=== PATIENT | female | born 1940 | race Caucasian/White ===

== ENCOUNTER 2023-06-07 06:00 | Outpatient (CLI) | payer OTHER | END 2023-06-07 23:59 | disposition critical access hospital (66) | LOC: EMS 06:00 | DX: N20.0 Calculus of kidney (principal) | CPT/HCPCS: A0425; A0429 ==

== ENCOUNTER 2023-06-07 06:13 | Observation (INO) | payer MEDICARE, OTHER ==
--- NOTE | 2023-06-07 06:59 | ED Physician Documentation ---
PD HPI ABD PAIN - Stated complaint Stated Complaint: KIDNEY STONES - Chief complaint Chief Complaint: General - History obtained from History obtained from: Patient, Family - History of Present Illness Timing - onset: How many days ago (3-4) Timing - duration: Days (3-4) Timing - details: Gradual onset, Still present Quality: Cramping, Aching, Pain Location: LLQ Radiation: Left flank Associated symptoms: Nausea. No: Fever, Diarrhea, Constipation, Dysuria (but some frequency), Chest pain Recently seen: Emergency Dept (Seen 3 days ago for same symptoms and diagnosed with a 5 mm stone at the distal ureter with significant hydro ureter and hydronephrosis. Incidental note of renal cyst. The patient has had persistent pain despite oral medication. Pain is worse with movement and walking. Slumped to the floor AM.). No: Clinic (When the patient was here 3 days ago I did talk with the [facility] coordinating physician who is placing a urology consult. The states the consult is still in progress and may go through tomorrow and then the office estimates another week for an appointment.) Review of Systems Constitutional: reports: Chills. 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 denies: Cough, Wheezing GI: reports: Abdominal Pain (left abdomen and flank persisting despite oral pain meds at home.), Nausea. denies: Vomiting, Diarrhea : reports: Frequency Skin: denies: Rash PD PAST MEDICAL HISTORY - Past Medical History Cardiovascular: None, Murmur Respiratory: None Neuro: None Endocrine/Autoimmune: None : Other - Past Surgical History Past Surgical History: Yes - Present Medications Home Medications: Ambulatory Orders Medication Instructions Recorded Confirmed Atorvastatin Calcium 40 mg PO DAILY 06/04/23 06/07/23 Lisinopril [Zestril] 20 mg PO DAILY 06/04/23 06/07/23 Meloxicam [Mobic] 7.5 mg PO BID 10 Days #15 tablet 06/04/23 06/07/23 Ondansetron Odt [Zofran] 4 mg TL Q6H PRN #15 tablet 06/04/23 06/07/23 Oxycodone HCl/Acetaminophen 1 each PO Q4H PRN #20 tablet 06/04/23 06/07/23 [Percocet 5-325 mg Tablet] Tamsulosin [Flomax] 0.4 mg PO DAILY #5 cap 06/04/23 06/07/23 - Allergies Allergies/Adverse Reactions: Allergies Allergy/AdvReac Type Severity Reaction Status Date / Time Penicillins Allergy Unknown Verified 06/07/23 12:13 - Social History Does the pt smoke?: No Smoking Status: Never smoker PD ED PE NORMAL - Vitals Vital signs reviewed: Yes - General General: Alert and oriented X 3, Well developed/nourished - HEENT HEENT: Atraumatic - Neck Neck: Supple, no meningeal sign, No adenopathy, No JVD - Cardiac Cardiac: RRR, Other (2/6 murmur left chest) - Respiratory Respiratory: Clear bilaterally (no crackles nor wheezes. ) - Abdomen Abdomen: Normal bowel sounds, Non distended, Other (tender left abd ith some guarding but no percussion tender. ) - Derm Derm: Normal color, Warm and dry - Extremities Extremities: No edema, No calf tenderness / cord - Neuro Neuro: Alert and oriented X 3, No motor deficit, No sensory deficit, Normal speech Results - Vitals Vitals: Vital Signs - 24 hr 06/07/23 06/07/23 06/07/23 06:22 06:30 08:30 Temperature 36.2 C L Heart Rate 94 81 Respiratory 22 22 18 Rate Blood Pressure 146/71 H 115/52 L O2 Saturation 98 96 93 06/07/23 06/07/23 06/07/23 10:34 11:02 11:53 Temperature 36.2 C L 36.0 C L Heart Rate 81 75 71 Respiratory 18 18 15 Rate Blood Pressure 115/52 L 102/59 L 113/60 O2 Saturation 93 94 100 06/07/23 06/07/23 06/07/23 12:00 12:05 12:10 Temperature 36.0 C L 36.1 C L 36.1 C L Heart Rate 70 70 76 Respiratory 15 15 17 Rate Blood Pressure 109/62 107/63 117/63 O2 Saturation 100 100 100 06/07/23 06/07/23 06/07/23 12:16 12:20 12:25 Temperature 36.3 C L 36.3 C L 36.3 C L Heart Rate 80 77 74 Respiratory 18 17 18 Rate Blood Pressure 119/72 123/69 120/68 O2 Saturation 95 95 94 06/07/23 06/07/23 06/07/23 12:30 12:35 12:40 Temperature 36.3 C L 36.3 C L 36.3 C L Heart Rate 76 77 77 Respiratory 17 23 23 Rate Blood Pressure 127/68 101/84 H 101/84 H O2 Saturation 94 95 95 06/07/23 06/07/23 06/07/23 12:57 13:35 14:31 Temperature 36.3 C L 36.5 C 36.3 C L Heart Rate 77 70 62 Respiratory 20 14 14 Rate Blood Pressure 124/70 122/65 117/53 L O2 Saturation 95 94 95 Oxygen O2 Source Room air - Labs Labs: Laboratory Tests 06/07/23 06/07/23 06/07/23 06:52 06:52 07:03 WBC 17.6 H RBC 4.50 Hgb 13.3 Hct 41.5 MCV 92.2 MCH 29.6 MCHC 32.0 RDW 13.7 Plt Count 224 MPV 9.8 Neut # (Auto) 15.4 H Lymph # (Auto) 0.6 L [place] # (Auto) 1.0 Eos # (Auto) 0.1 Baso # (Auto) 0.1 Absolute Nucleated RBC 0.00 Nucleated RBC % 0.0 Manual Slide Review Indicated RBC Morph Micro Appear 2+ ANISOCYTOSIS Sodium 135 Potassium 4.0 Chloride 102 Carbon Dioxide 23 Anion Gap 10.0 BUN 29 H Creatinine 1.1 Estimated GFR (MDRD) 48 L Glucose 143 H Calcium 8.9 Urine Color YELLOW Urine Clarity HAZY Urine pH 7.0 Ur Specific [place] 1.015 Urine Protein 30 H Urine Glucose (UA) NEGATIVE Urine Ketones 15 H Urine Occult Blood TRACE-INTA Urine Nitrite NEGATIVE Urine Bilirubin NEGATIVE Urine Urobilinogen 1 (NORMAL) Ur Leukocyte Esterase SMALL H Urine RBC 0-5 Urine WBC >25 H Ur Squamous Epith Cells NONE SEEN Urine Bacteria Moderate H Ur Microscopic Review INDICATED Urine Culture Comments INDICATED PD Medical Decision Making - ED course Complexity details: reviewed results (The white count this morning is elevated compared to 3 days ago. It is now 17,000. The urinalysis shows small amount of leukocytes and the presence of white cells on microscopy as well as some bacteria. Consideration for developing UTI.), considered differential (The patient has persisting pain from kidney stone and hydronephrosis. Interestingly is more symptomatic with walking and movement as well. She had oral pain medicine at home with only mild improvement. Concern may be a possible developing UTI, as well as intractable pain.), d/w patient, d/w family (spouse), d/w professional employer consultant (I talked with Dr. Wu on-call for urology who states he would be able to place a stent for the patient today. Refers to medical service. Would suggest ceftriaxone for possible developing UTI. The patient last ate at 9 PM last evening.) ED course: The patient is going to go to the OR for stent placement by the urology. Intention from there will be to see how her pain is doing and pain control/mobility and also evaluating possible developing UTI. Observation may be most appropriate. I did talk with the hospitalist on morning rounds and felt that that was likely appropriate. We do not have any beds available initially but discharges are expected. The patient did go to the OR and had the stent placed. She is in the recovery at this point. There is reportedly some discharges occurring from the floor so the patient is being held a little bit longer in the recovery unit to see if she can go directly there. I have not directly talked with the hospitalist again there is not he had a bed available but a will place a call and. Otherwise the patient may end up needing to come back to the ER until beds are available if the PACU cannot hold on longer. At this point they are still there normally through couple more hours. I did place a call to the hospitalist who is with other patients at this time and I will expect call back here shortly. Departure - Departure Disposition: ED Place in Observation Clinical Impression: Ureterolithiasis, Intractable pain, UTI (urinary tract infection), Left sided abdominal pain, Renal cyst, Heart murmur on physical examination Condition: Stable Record reviewed to determine appropriate education?: Yes Discharge Date/Time: 06/07/23 11:07
[2023-06-07 07:05] LABS: BASOPHILS # (AUTO) 0.1 10^3/uL (0.0-0.1); BASOPHILS % (AUTO) 0.4 %; EOSINOPHILS # (AUTO) 0.1 10^3/uL (0.0-0.7); EOSINOPHILS % (AUTO) 0.5 %; HCT - HEMATOCRIT 41.5 % (37.0-47.0); HGB - HEMOGLOBIN 13.3 g/dL (12.0-16.0); LYMPHOCYTES # (AUTO) 0.6 10^3/uL (1.5-3.5); LYMPHOCYTES % (AUTO) 3.4 %; MEAN CORPUSCULAR HEMOGLOBIN 29.6 pg (27.0-31.0); MEAN CORPUSCULAR VOLUME 92.2 fL (81.0-99.0); MEAN PLATELET VOLUME 9.8 fL (7.9-10.8); MONOCYTES % (AUTO) 5.4 %; NEUTROPHILS # (AUTO) 15.4 10^3/uL (1.5-6.6); NEUTROPHILS % (AUTO) 87.3 %; PLT - PLATELET COUNT 224 10^3/uL (130-450); RED CELL DISTRIBUTION WIDTH 13.7 % (12.0-15.0); WHITE BLOOD COUNT 17.6 x10^3/uL (4.8-10.8)
[2023-06-07 07:10] LABS: SLIDE REVIEW? Indicated
[2023-06-07 07:14] LABS: CALCIUM 8.9 mg/dL (8.5-10.3); CREATININE 1.1 mg/dL (0.6-1.3)
[2023-06-07 07:27] LABS: BILIRUBIN,URINE NEGATIVE (NEGATIVE); GLUCOSE, URINE (UA) NEGATIVE (NEGATIVE); KETONES,URINE (UA) 15 mg/dL (NEGATIVE); LEUKOCYTE ESTERASE, URINE SMALL (NEGATIVE); NITRITE,URINE NEGATIVE (NEGATIVE); OCCULT BLOOD,URINE TRACE-INTA (NEGATIVE); PROTEIN,URINE 30 mg/dL (NEGATIVE); UROBILINOGEN,URINE 1 (NORMAL) E.U./dL (NORMAL)
[2023-06-07 07:31] LABS: CLARITY,URINE HAZY (CLEAR)
[2023-06-07 07:39] LABS: RBC MORPHOLOGY (MULTIPLE) 2+ ANISOCYTOSIS (NORMAL)
[2023-06-07 07:49] LABS: RBC,URINE 0-5 /HPF (0-5); SQUAMOUS EPITHELIAL CELL,UR NONE SEEN (<= Few); WBC,URINE >25 /HPF (0-5)
[2023-06-07 07:50] LABS: BACTERIA,URINE Moderate /HPF (None Seen)
[2023-06-07] MEDS ORDERED: HYDROmorphone 0.5 MG/0.5 ML SYRINGE IVP STA (08:31)
[2023-06-07] MEDS ORDERED: KETOROLAC 15 MG/ML VIAL IVP STA (08:31)
[2023-06-07] MEDS ORDERED: cefTRIAXone 1 GM VIAL IVP STA (08:42)
--- NOTE | 2023-06-07 09:35 | SURGERY HX AND PHYSICAL(T) ---
Surgical History & Physical - Chief Complaint/HPI Chief Complaint: Left flank pain History of Present Illness: 82-year-old woman with no significant urological history who presented to the ER 3 days ago with left flank pain, was found to have a 5 mm distal left ureteral stone. She was sent home with conservative management. She returns today with worsening pain, leukocytosis, urinalysis concerning for infection. She is hemodynamically stable she is afebrile. Her last meal was last night - PMH/PSH/Social Hx Does the pt have a hx of MRSA?: No Neurological History: None Cardiovascular: None, Murmur Respiratory: None Endocrine/Autoimmune: None Urinary: Other Smoking Status: Never smoker - Home Meds and Allergies Home Medications: Atorvastatin Calcium 40 mg PO DAILY 06/04/23 Lisinopril [Zestril] 20 mg PO DAILY 06/04/23 Allergies/Adverse Reactions: Allergies Allergy/AdvReac Type Severity Reaction Status Date / Time No Known Drug Allergies Allergy Verified 06/07/23 06:33 - Vital Signs Heart Rate: 81 Blood Pressure: 115/52 Temperature: 36.2 C Respiratory Rate: 18 O2 Saturation: 93 Weight (kg): 86 kg Height: 1.6 m - Physical Exam General Appearance: positive: Other (flushed) Respiratory: positive: Breath sounds nml Cardiovascular: positive: Regular rate & rhythm - Patient Review Patient Review: Problems were reviewed with the patient during this visit. Medications were reviewed with the patient during this visit. Allergies were reviewed this patient during this visit. Pertinent Tests Reviewed: All pertitent test for this patient were reviewed. - Assessment & Plan Assessment and Plan: 82yo F with left distal 5mm ureteral stone, 1.6cm left non obstructing stone, possible UTI and failed outpatient management -add on for cystoscopy, left ureteral stent placement -risks benefits and alternatives discussed with patient -will need definitive stone management as an outpatient -likely stay overnight -empiric antibiotics given, will go home with 7 days of antibiotics
[2023-06-07] MEDS ORDERED: LIDOCAINE 2% URO-JET 5 ML SYRINGE UR ONE ×2 (10:48→12:17)
[2023-06-07] MEDS ORDERED: PROPOFOL 200 MG/20 ML VIAL IVP ONE (11:06)
[2023-06-07] MEDS ORDERED: LIDOCAINE-PF 2% 10 ML AMP SUBQ ONE (11:07)
[2023-06-07] MEDS ORDERED: fentaNYL 100 MCG/2 ML VIAL ONE (11:18)
[2023-06-07] MEDS ORDERED: ePHEDrine 50 MG/ML VIAL IVP ONE (11:38)
[2023-06-07] MEDS ORDERED: LACTATED RINGERS 400 ML IV ONE ×2 (11:53)
[2023-06-07] MEDS ORDERED: ATROPINE ABBOJECT 1 MG/10 ML SYRINGE IVP PRN (12:02)
[2023-06-07] MEDS ORDERED: MORPHINE 2 MG/ML CARPUJECT IVP PRN (12:02)
[2023-06-07] MEDS ORDERED: fentaNYL 100 MCG/2 ML VIAL IVP PRN (12:02)
[2023-06-07] MEDS ORDERED: ONDANSETRON 4 MG/2 ML VIAL IVP PRN ×2 (12:02→12:21)
[2023-06-07] MEDS ORDERED: NALOXONE 0.4 MG/ML VIAL IVP PRN (12:02)
[2023-06-07] MEDS ORDERED: METOCLOPRAMIDE 10 MG/2 ML VIAL IVP PRN (12:02)
[2023-06-07] MEDS ORDERED: HYDROmorphone 0.5 MG/0.5 ML SYRINGE IVP PRN ×2 (12:02→16:35)
[2023-06-07] MEDS ORDERED: ePHEDrine 50 MG/ML VIAL IVP PRN (12:02)
--- NOTE | 2023-06-07 12:04 | ANESTHESIA ---
Pre-Anesthesia VS, & Labs - Diagnosis L kidney stone - Procedure cysto with L urethral stent Vital Signs: Temp Pulse Resp BP Pulse Ox O2 Flow Rate 36.0 C L 70 15 109/62 100 06/07/23 12:00 06/07/23 12:00 06/07/23 12:00 06/07/23 12:00 06/07/23 12:00 Height: 5 ft 3 in Weight (kg): 86 kg Body Mass Index: 33.5 BMI Classification: Obese - NPO >8 hours - Is Patient ?: No - Lab Results Current Lab Results: Laboratory Tests 06/07/23 06:52: Sodium 135, Potassium 4.0, Chloride 102, Carbon Dioxide 23, Anion Gap 10.0, BUN 29 H, Creatinine 1.1, Estimated GFR (MDRD) 48 L, Glucose 143 H, Calcium 8.9 06/07/23 06:52: WBC 17.6 H, RBC 4.50, Hgb 13.3, Hct 41.5, MCV 92.2, MCH 29.6, MC HC 32.0, RDW 13.7, Plt Count 224, MPV 9.8, Neut # (Auto) 15.4 H, Lymph # (Auto) 0.6 L, [place] # (Auto) 1.0, Eos # (Auto) 0.1, Baso # (Auto) 0.1, Absolute Nucleated RBC 0.00, Nucleated RBC % 0.0, Manual Slide Review Indicated, RBC Morph Micro Appear 2+ ANISOCYTOSIS Fish Bones: 06/07/23 06:52 06/07/23 06:52 Home Medications and Allergies Atorvastatin Calcium 40 mg PO DAILY 06/04/23 Lisinopril [Zestril] 20 mg PO DAILY 06/04/23 Allergies/Adverse Reactions: Allergies Allergy/AdvReac Type Severity Reaction Status Date / Time No Known Drug Allergies Allergy Verified 06/07/23 06:33 Anes History & Medical History - Anesthetic History Anesthesia Complications: reports: No previous complications Family history of Anesthesia Complications: Denies Family history of Malignant Hyperthermia: Denies - Medical History Cardiovascular: reports: AK, Murmur Pulmonary: reports: None Urinary: reports: Other Neuro: reports: None Endocrine/Autoimmune: reports: None Smoking Status: Never smoker Psychosocial: reports: Alcohol (hx of heavy ETOH, recently quit) Exam General: Oriented x3, Cooperative, Other (pt lethargic; recently medicated with dilaudid in ED) Dental: WNL Mouth Openin Fingerbreadth Neck Mobility: Normal Mallampati classification: III Thyromental Distance: 4-6 cm Respiratory: Lungs clear Cardiovascular: Regular rate Plan Anesthesia Type: General Consent for Procedure(s) Verified and Reviewed: Yes Code Status: Attempt Resuscitation ASA classification: 2-Mild systemic disease Is this case an emergency?: No
--- NOTE | 2023-06-07 12:16 | OPERATIVE REPORT ---
Operative Report - General Procedure Date: 06/07/23 Planned Procedure: Cystoscopy left ureteral stent Pre-Op Diagnosis: Left ureteral stone Procedure Performed: Cystoscopy, left ureteral stent Post Op Diagnosis: left ureteral stone - Procedure Note Primary Surgeon: Bryce Anesthesia Provider: KATTY Anesthesia Technique: General LMA Indications: left ureteral stone, pain, UTI Findings: Erythematous bladder mucosa left stent placed Complications: none - Other Other Information/Narrative: After informed consent was obtained the patient was brought to the OR and laid in the supine position. She was anesthetized per anesthesia protocols. She was placed in dorsal lithotomy position. She was then prepped and draped in usual sterile fashion. A formal timeout was performed reconfirming the patient, procedure and laterality. A 22 Albanian cystoscope was advanced easily into the urinary bladder. She was noted to have a grade 2 rectocele. Her bladder mucosa was erythematous diffusely consistent with cystitis. A sensor wire was placed up her left ureteral orifice up into the kidney and then a 6 Albanian 24cm stent was placed with good curling noted in the kidney and good curling noted in the blad ike. Her stones did not appear to be radiopaque. Her bladder was emptied and a Uro-Jet was placed. The patient was reversed anesthesia and brought to the PACU without further incident. All counts were correct. She will be kept overnight to monitor improvement in her leukocytosis. She should go home with 7 days of empiric antibiotics such as Keflex. She will need outpatient management of her stone
[2023-06-07] MEDS ORDERED: LACTATED RINGERS 1,000 ML IV SCH (13:00)
--- NOTE | 2023-06-07 16:18 | ANESTHESIA POST OP EVALUATION ---
Anesthesia Post Eval - Post Anesthesia Eval Vitals: Last Vital Signs Temp 36.3 C L 06/07/23 14:31 Pulse 62 06/07/23 14:31 Resp 14 06/07/23 14:31 BP 117/53 L 06/07/23 14:31 Pulse Ox 95 06/07/23 14:31 O2 Flow Rate CV Function Including HR & BP: Stable Pain Control: Satisfactory Nausea & Vomiting: Negative Mental Status: Baseline Respiratory Status: Airway Patent Hydration Status: Satisfactory Anesthesia Complications: None
--- NOTE | 2023-06-07 16:24 | CONSULTATION NOTE ---
Referring Provider Name of Referring Provider:: Dr Lara (ER) Consult Date: 06/07/23 Chief Complaint - Chief Complaint Chief Complaint: Worsening flank pain, getting stent placed by urology for stone, has a UTI History of Present Illness - Admitted From Admitted From:: PACU - History Obtained From History obtained from: ED provider - History of Present Illness HPI Comment/Other: This is an 82-year-old female who presented to the ED 3 days ago with complaints of flank pain, had a normal white blood count and no UTI found, but CT imaging showed a stone causing obstruction with hydronephrosis. The daughter also remarked that there was left sided weakness for which she underwent a head CT that was unremarkable. She was sent home with pain meds. The ED provider also spoke with the [facility] physician for a urology consult. The stated the consult is still in progress and estimate given was another week for an appointment. She returned to the ER complaining of worsening flank pain and the work-up now shows that she has an elevated white count of 17.6 and urinalysis with evidence of UTI. No repeat imaging of the abd/pelvis was done today. The ED provider spoke to the Urologist, who has just completed putting in a stent. The Urologist then spoke to me indicating that the patient had a "soft" BP at presentation and because of the elevated WBC, he wants her monitored for having spesis and wants her to receive a 7-day course of antibiotics. 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 Social History Notes: Quit smoking cigarettes many years ago. Drinks no alcohol. She says she drives a car. 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 - Substance History Use: Uses substance without health or social issues: NONE - POLST Patient has POLST: No Meds/Allgy - Home Medications Home Medications: Ambulatory Orders Medication Instructions Recorded Confirmed Atorvastatin Calcium 40 mg PO DAILY 06/04/23 06/07/23 Lisinopril [Zestril] 20 mg PO DAILY 06/04/23 06/07/23 Meloxicam [Mobic] 7.5 mg PO BID 10 Days #15 tablet 06/04/23 06/07/23 Ondansetron Odt [Zofran] 4 mg TL Q6H PRN #15 tablet 06/04/23 06/07/23 Oxycodone HCl/Acetaminophen 1 each PO Q4H PRN #20 tablet 06/04/23 06/07/23 [Percocet 5-325 mg Tablet] Tamsulosin [Flomax] 0.4 mg PO DAILY #5 cap 06/04/23 06/07/23 - Allergies Allergies/Adverse Reactions: Allergies Allergy/AdvReac Type Severity Reaction Status Date / Time Penicillins Allergy Unknown Verified 06/07/23 12:13 Review of Systems - Constitutional Constitutional: reports: Fatigue, Weakness - Genitourinary Genitourinary: reports: Frequency, Flank pain - Musculoskeletal Musculoskeletal: reports: Other (Reports to me (but did not tell ER today) that she fell out of bed this morning and has pain in the left buttock, worse and very painful when bearing weight) - Neurological Neurological: reports: Other (She remembers vaguely there was left arm weakness about a month ago, denies it currently) - All Other Systems All Other Systems: reports: Reviewed and negative Exam - Vital Signs Vital Signs: Vital Signs x48h Temp Pulse Resp BP Pulse Ox 06/07/23 14:31 36.3 C L 62 14 117/53 L 95 06/07/23 13:35 36.5 C 70 14 122/65 94 06/07/23 12:57 36.3 C L 77 20 124/70 95 06/07/23 12:40 36.3 C L 77 23 101/84 H 95 06/07/23 12:35 36.3 C L 77 23 101/84 H 95 06/07/23 12:30 36.3 C L 76 17 127/68 94 06/07/23 12:25 36.3 C L 74 18 120/68 94 06/07/23 12:20 36.3 C L 77 17 123/69 95 06/07/23 12:16 36.3 C L 80 18 119/72 95 06/07/23 12:10 36.1 C L 76 17 117/63 100 06/07/23 12:05 36.1 C L 70 15 107/63 100 06/07/23 12:00 36.0 C L 70 15 109/62 100 06/07/23 11:53 36.0 C L 71 15 113/60 100 06/07/23 11:02 75 18 102/59 L 94 06/07/23 10:34 36.2 C L 81 18 115/52 L 93 06/07/23 08:30 81 18 115/52 L 93 - Physical Exam General Appearance: positive: No acute distress, Lethargic (After pain meds) Eyes Bilateral: positive: Normal inspection, EOMI ENT: positive: ENT inspection nml, No signs of dehydration Neck: positive: Nml inspection, No JVD Respiratory: positive: No respiratory distress, Breath sounds nml Cardiovascular: positive: Regular rate & rhythm, No murmur Abdomen: positive: Non-tender, Nml bowel sounds, No distention Skin: positive: Warm, Dry Extremities: positive: Non-tender, No pedal edema Neurologic/Psychiatric: positive: Oriented x3, Motor nml Conclusion/Plan - Problem List (1) UTI (urinary tract infection) Conclusion/Plan: Patient presented with flank pain 3 days ago but did not have an elevated white count or abnormal UTI then, despite imaging showing urinary tract obstruction with hydronephrosis Now she has an elevated WBC and abnormal UA consistent with UTI Plan: Obtain Lactic Acid level to assure there is no sepsis Follow CBC with differential daily Begin empiric IV ceftriaxone daily Await urine culture results to tailor antibiotics. Dr. Wu of Urology has told me he wants her to get 7 days of an antibiotic like Keflex upon discharge (2) Ureterolithiasis Conclusion/Plan: Patient was taken to the OR for stent done by urology Plan: Management as per Urol Pain meds prn (3) Prerenal azotemia Conclusion/Plan: BUN 29, creatinine 1.1 consistent with prerenal azotemia Plan: I will order maintenance IV fluids Avoid nephrotoxins Follow BMP daily (4) Hx of essential hypertension Conclusion/Plan: The patient is on lisinopril at home. She also is on tamsulosin which can drop her blood pressure somewhat. She presents now with a "soft" BP. Plan: Hold her Lisinopril, given the "soft" BP (5) Fall at home Conclusion/Plan: Describes pain in left buttock with weightbearing Plan: We will obtain hip and pelvic x-rays 2-3 views left side - Lab Results Fish Bones: 06/07/23 06:52 06/07/23 06:52 - Diagnostic Imaging Results Diagnostic Imaging Results: positive: Final report reviewed
[2023-06-07] MEDS ORDERED: ONDANSETRON ODT 4 MG TABLET TL PRN ×2 (16:31→16:35)
[2023-06-07] MEDS ORDERED: oxyCODONE/ACET 5/325 Prepack 4 PO PRN (16:31)
[2023-06-07] MEDS ORDERED: SODIUM CHLORIDE FLUSH 0.9% 10 ML SYRINGE IVP PRN (16:35)
[2023-06-07] MEDS ORDERED: oxyCODONE 5 MG TABLET PO PRN (16:35)
--- NOTE | 2023-06-07 19:20 | XRAY Report ---
PROCEDURE: Hip w/Pelvis 2-3V LT INDICATIONS: Fell OOB at home today, painful w/ standing TECHNIQUE: AP pelvis with lateral view(s) of the left hip(s). COMPARISON: None. FINDINGS: Bones: No fractures or dislocations. No suspicious bony lesions. Soft tissues: No suspicious soft tissue calcifications or masses. Nephroureteral stent placement. IMPRESSION: No acute bony abnormality. If there remains a high clinical concern for fracture, including inability to bear weight, consider cross-sectional imaging to exclude an occult fracture. Reviewed by: Zeeshan Hicks on 06/07/2023 7:19 PM PDT Approved by: Zeeshan Hicks on 06/07/2023 7:19 PM PDT Station ID: [id number]
[2023-06-07] MEDS: HYDROcod/ACETAM 5/325 MG TABLET PO PRN (19:55)
[2023-06-07] MEDS: SODIUM CHLORIDE FLUSH 0.9% 10 ML SYRINGE IVP SCH (19:55)
[2023-06-07] MEDS ORDERED: PRAVASTATIN 40 MG TABLET PO SCH (21:00)
[2023-06-08] MEDS: SODIUM CHLORIDE FLUSH 0.9% 10 ML SYRINGE IVP SCH ×3 (00:01→21:49)
[2023-06-08 06:51] LABS: BASOPHILS % (AUTO) 0.1 %; EOSINOPHILS % (AUTO) 0.8 %; HCT - HEMATOCRIT 40.8 % (37.0-47.0); HGB - HEMOGLOBIN 13.2 g/dL (12.0-16.0); LYMPHOCYTES % (AUTO) 6.6 %; MEAN CORPUSCULAR HEMOGLOBIN 29.7 pg (27.0-31.0); MEAN CORPUSCULAR HGB CONC 32.4 g/dL (32.0-36.0); MEAN CORPUSCULAR VOLUME 91.9 fL (81.0-99.0); MONOCYTES % (AUTO) 8.3 %; NEUTROPHILS % (AUTO) 81.9 %; RED BLOOD COUNT 4.44 10^6/uL (4.20-5.40); RED CELL DISTRIBUTION WIDTH 13.5 % (12.0-15.0)
[2023-06-08 07:06] LABS: CALCIUM 8.4 mg/dL (8.5-10.3); CREATININE 0.8 mg/dL (0.6-1.3)
[2023-06-08 07:28] LABS: WHITE BLOOD COUNT 14.6 x10^3/uL (4.8-10.8)
[2023-06-08 07:29] LABS: ABNORMAL LYMPHS % (MANUAL) 0 %
[2023-06-08 07:48] LABS: BAND NEUTROPHILS % (MANUAL) 2 %; EOSINOPHILS # (MANUAL) 0.3 10^3/uL (0-0.7); LYMPHOCYTES # (MANUAL) 1.2 10^3/uL (1.5-3.5); LYMPHOCYTES % (MANUAL) 7 %; MONOCYTES # (MANUAL) 1.3 10^3/uL (0.0-1.0); MYELOCYTES % (MANUAL) 1 %; NEUTROPHILS # (MANUAL) 11.7 10^3/uL (1.5-6.6); REACTIVE LYMPHS % (MANUAL) 1 %
[2023-06-08 07:49] LABS: PLATELET MORPHOLOGY PLATELET CLUMPING (NORMAL); RBC MORPHOLOGY (MULTIPLE) NORMAL APPEARANCE (NORMAL)
[2023-06-08 07:50] LABS: DIFFERENTIAL COMMENT MANUAL DIFFERENTIAL
--- NOTE | 2023-06-08 08:07 | XRAY Report ---
PROCEDURE: OR C-Arm Procedure INDICATIONS: cysto w/stent FLUORO TIME: 0.01 MIN TECHNIQUE: 3 intraoperative fluoroscopic images COMPARISON: None. FINDINGS AND IMPRESSION: 3 intraoperative fluoroscopic images of urologic procedure with a ureteral stent are provided for non diagnostic interpretation. Please see operative report for details. Cumulative dose: 2.9 mGy Reviewed by: Cristofer Rosas MD on 06/08/2023 8:05 AM PDT Approved by: Cristofer Rosas MD on 06/08/2023 8:05 AM PDT Station ID: [id number]
--- NOTE | 2023-06-08 08:17 | PROVIDER PROGRESS NOTE ---
Subjective - General Admit Date: 06/07/23 Procedure Date: 06/07/23 Post Op Days: 1 - Review of Systems General: positive: No symptoms Pulmonary: positive: No symptoms Cardiovascular: positive: No symptoms Gastrointestinal: positive: No symptoms Musculoskeletal: positive: Other (left hip pain, xray negative) All Other Systems: positive: Reviewed and negative - Other Other Information/Narrative: Feeling well, but cannot walk Xrays negative No fever, chills pain controlled Objective - Patient Data Reviewed Vital Signs: Yes Vital Signs: Vital Signs x48h Temp Pulse Resp BP Pulse Ox 06/08/23 07:25 37.8 C 72 16 151/79 H 93 06/08/23 05:14 37.9 C 93 17 151/64 H 94 Weight: Weight 06/06/23 06/07/23 06/08/23 23:59 23:59 23:59 Weight (kg) 86 kg Intake & Output: Intake and Output Totals x24h 06/06/23 06/07/23 06/08/23 23:59 23:59 23:59 Intake Total 780 100 Output Total 175 600 Balance 605 -500 - Lab Results Lab Results: 06/08/23 06:21 06/08/23 06:21 Other Lab Results: Lab Results x24hrs 06/08/23 06/08/23 06/07/23 Range/Units 06:21 06:21 19:38 WBC 14.6 H (4.8-10.8) x10^3/uL RBC 4.44 (4.20-5.40) 10^6/uL Hgb 13.2 (12.0-16.0) g/dL Hct 40.8 (37.0-47.0) % MCV 91.9 (81.0-99.0) fL MCH 29.7 (27.0-31.0) pg MCHC 32.4 (32.0-36.0) g/dL RDW 13.5 (12.0-15.0) % Neut # (Auto) Not Reportable Lymph # (Auto) Not Reportable [place] # (Auto) Not Reportable Eos # (Auto) Not Reportable Baso # (Auto) Not Reportable Absolute Nucleated RBC Not Reportable Total Counted 100 Band Neuts % (Manual) 2 (0 - 10) % Reactive Lymphs % (Man) 1 % Abnorm Lymph % (Manual) 0 % Myelocytes % 1 H ( - 0) % Nucleated RBC % Not Reportable Neutrophils # (Manual) 11.7 H (1.5-6.6) 10^3/uL Lymphocytes # (Manual) 1.2 L (1.5-3.5) 10^3/uL Monocytes # (Manual) 1.3 H (0.0-1.0) 10^3/uL Eosinophils # (Manual) 0.3 (0-0.7) 10^3/uL Basophils # (Manual) 0.0 (0-0.1) 10^3/uL Differential Comment MANUAL DIFFERENTIAL WBC Morphology 2+ VACUOLATION (NORMAL) Platelet Morphology PLATELET CLUMPING (NORMAL) RBC Morph Micro Appear NORMAL APPEARANCE (NORMAL) Sodium 134 L (135-145) mmol/L Potassium 4.0 (3.5-4.5) mmol/L Chloride 102 (101-111) mmol/L Carbon Dioxide 24 (21-32) mmol/L Anion Gap 8.0 (6-13) BUN 19 (6-20) mg/dL Creatinine 0.8 (0.6-1.3) mg/dL Estimated GFR (MDRD) 69 L (>89) Glucose 123 H (74-104) mg/dL Lactic Acid 2.1 (0.5-2.2) mmol/L Calcium 8.4 L (8.5-10.3) mg/dL - Current Medications Current Medications: Current Medications Generic Name Dose Route Start Last Admin Trade Name Freq PRN Reason Stop Dose Admin Hydrocodone Bitart/Acetaminophen 1 tab 06/07/23 12:21 06/07/23 19:55 Hydrocod/Acetam 5/325 Mg Tablet PO 1 tab Q4HR PRN Administration Moderate Pain (Level 4-6) Pravastatin Sodium 40 mg 06/07/23 21:00 06/07/23 19:55 Pravastatin 40 Mg Tablet PO 40 mg QPM KIT Administration Sodium Chloride 10 ml 06/07/23 17:00 06/08/23 00:01 Sodium Chloride Flush 0.9% 10 Ml Syringe IVP Not Given 0100,0900,1700 KIT - Physical Exam General Appearance: positive: No acute distress Respiratory: positive: Breath sounds nml ABX Reporting Has patient been on IV antibiotics over the past 48 hours?: Yes Impression/Plan - Problem List Problem List: Left ureteral stone -doing well, stent in place. Switch to oral keflex -home pending PT/OT -followup with Dr Wu in 1-2 weeks
[2023-06-08] MEDS: TAMSULOSIN 0.4 MG CAPSULE PO SCH (08:18)
[2023-06-08] MEDS ORDERED: cefTRIAXone 1 GM in SODIUM CHLORIDE 0.9% MINIBAG 100 ML IV SCH (09:00)
[2023-06-08] MEDS ORDERED: cephALEXin 250 MG CAPSULE PO SCH (09:00)
[2023-06-08] MEDS ORDERED: cefTRIAXone 1 GM in SODIUM CHLORIDE 0.9% MINIBAG 100 ML IV ONE (09:29)
[2023-06-08] MEDS: lisinopriL 20 MG TABLET PO SCH (10:55)
[2023-06-08] MEDS: MELOXICAM 7.5 MG TABLET PO SCH ×2 (10:55→21:49)
--- NOTE | 2023-06-08 11:38 | PROVIDER PROGRESS NOTE ---
Assessment/Plan - Problem List (1) AMS (altered mental status) Assessment/Plan: Yesterday and today the patient has obvious lethargy and the at bedside states that this is not her normal mental status; she is usually sharp, quick to answer and has a better memory. He noticed that this began when she got low doses of oxycodone, on which she was put after being in the ER 4 days ago when the stone was found. However, he says that yesterday she had almost no recollection of presenting to the ER, and today she has continued slow responses and is more lethargic than normal Plan: We will obtain a head CT. We will be able to have a comparison of the head CT done 4 days ago during that ER visit. Presumably her UTI may be adding to this AMS and will allow further treatment using IV antibiotics, watching if there is improvement in AMS The patient is now officially on the Hospitalist service, in Observation status, transitioned from the Urologist service, where she was in same-day surgery status yesterday. I discussed this change with Dr. Wu the Urologist. I updated the patient and at bedside today regarding this as well. (2) Left hip pain Assessment/Plan: Yesterday the patient reported this around dinnertime, she did not report it at presentation to the ER yesterday. X-rays of the left hip and pelvis were done yesterday evening and these showed no areas of fracture or dislocation. Today the gave more details about how she fell out of bed on the morning of presentation. He heard a thud and found her on the floor. It took the patient and her 1-1/2 hours to lift her, she was then wheeled to the toilet then brought back but could not be moved from chair back to bed, so the called an ambulance. Today the patient says she has had left lower leg pain for months but cannot specify how long or what makes it worse or better. She continues to have the point tenderness of her left lateral hip today. Plan: We will obtain CT of LS spine and left hip and upper leg. We will offer pain meds PT evaluation ordered>> The patient cannot bear weight on the L leg as it causes 10/10 pain. Therefore it is not safe for her to be discharged home today. PT suspects she may need rehab at a SNF (3) Fall at home Assessment/Plan: Today the gave more details about how she fell out of bed on the morning of presentation. He heard a thud and found her on the floor. It took the patient and her 1-1/2 hours to lift her, she was then wheeled to the toilet then brought back but could not be moved from chair back to bed, so the called an ambulance. Plan: PT eval Orthostatic VS checks (4) UTI (urinary tract infection) Assessment/Plan: When she was in the ER 4 days ago there was no indication of UTI by her urinalys is and she had a normal white count and no fever. At presentation now yesterday she has an abnormal urinalysis, elevated white count and the urine culture is growing Proteus as the preliminary identification Plan: Continue with empiric IV ceftriaxone daily Urologist has okayed for her to be put on oral antibiotics starting tomorrow 06/09 Await final identification and sensitivity results to tailor antibiotic (5) Ureterolithiasis Assessment/Plan: S/P ureteral stent placed by Dr Wu Urologist Plan: I spoke to Dr. Wu today, he wants her to have a follow-up in his office in 1 to 2 weeks as an outpatient (6) Prerenal azotemia Assessment/Plan: Resolved Labs were all reviewed. Her BUN/creatinine is normal today (7) Hx of essential hypertension Assessment/Plan: Plan: I will slowly resume her usual BP meds, if she is not orthostatic - Current Meds Current Meds: Current Medications Generic Name Dose Route Start Last Admin Trade Name Freq PRN Reason Stop Dose Admin Hydrocodone Bitart/Acetaminophen 1 tab 06/07/23 12:21 06/07/23 19:55 Hydrocod/Acetam 5/325 Mg Tablet PO 1 tab Q4HR PRN Administration Moderate Pain (Level 4-6) Lisinopril 20 mg 06/08/23 11:00 06/08/23 10:55 Lisinopril 20 Mg Tablet PO 20 mg DAILY KIT Administration Meloxicam 7.5 mg 06/08/23 11:00 06/08/23 10:55 Meloxicam 7.5 Mg Tablet PO 7.5 mg BID KIT Administration Sodium Chloride 10 ml 06/07/23 17:00 06/08/23 08:19 Sodium Chloride Flush 0.9% 10 Ml Syringe IVP 10 ml 0100,0900,1700 KIT Administration Tamsulosin HCl 0.4 mg 06/08/23 09:00 06/08/23 08:18 Tamsulosin 0.4 Mg Capsule PO 0.4 mg DAILY KIT Administration - Lab Result Fish Bone Diagrams: 06/08/23 06:21 06/08/23 06:21 - Additional Planning My Orders: My Active Orders 06/07/23 16:31 Ondansetron Odt [Zofran Odt] 4 mg TL Q6H PRN 06/07/23 19:24 Code Status [OTHERS] Routine 06/08/23 Evaluate and Treat OT [OT] Routine Evaluate and Treat PT [PT] Routine 06/08/23 09:00 Tamsulosin [Flomax] 0.4 mg PO DAILY 06/08/23 11:00 Meloxicam [Mobic] 7.5 mg PO BID lisinopriL [Zestril] 20 mg PO DAILY Subjective - Subjective Patient Reports: Back Pain, Pain (Patient describes pain in the left hip area. She rates the pain 10/10 when she stands and tries to bear weight, and it radiates down her posterior L leg. There is no more L flank pain today.) Objective Vital Signs: Vital Signs - 24 hr 06/07/23 06/07/23 06/07/23 11:53 12:00 12:05 Temperature 36.0 C L 36.0 C L 36.1 C L Heart Rate 71 70 70 Heart Rate [ Brachial] Respiratory 15 15 15 Rate Blood Pressure 113/60 109/62 107/63 Blood Pressure [Right Brachial artery] O2 Saturation 100 100 100 06/07/23 06/07/23 06/07/23 12:10 12:16 12:20 Temperature 36.1 C L 36.3 C L 36.3 C L Heart Rate 76 80 77 Heart Rate [ Brachial] Respiratory 17 18 17 Rate Blood Pressure 117/63 119/72 123/69 Blood Pressure [Right Brachial artery] O2 Saturation 100 95 95 06/07/23 06/07/23 06/07/23 12:25 12:30 12:35 Temperature 36.3 C L 36.3 C L 36.3 C L Heart Rate 74 76 77 Heart Rate [ Brachial] Respiratory 18 17 23 Rate Blood Pressure 120/68 127/68 101/84 H Blood Pressure [Right Brachial artery] O2 Saturation 94 94 95 06/07/23 06/07/23 06/07/23 12:40 12:57 13:35 Temperature 36.3 C L 36.3 C L 36.5 C Heart Rate 77 77 70 Heart Rate [ Brachial] Respiratory 23 20 14 Rate Blood Pressure 101/84 H 124/70 122/65 Blood Pressure [Right Brachial artery] O2 Saturation 95 95 94 06/07/23 06/07/23 06/07/23 14:31 16:44 17:14 Temperature 36.3 C L 36.6 C 36.6 C Heart Rate 62 Heart Rate [ 84 Brachial] Respiratory 14 18 16 Rate Blood Pressure 117/53 L Blood Pressure 122/55 L 112/49 L [Right Brachial artery] O2 Saturation 95 94 95 06/07/23 06/07/23 06/07/23 19:14 21:08 23:44 Temperature 36.8 C 37.4 C 37.3 C Heart Rate Heart Rate [ 92 88 89 Brachial] Respiratory 16 16 16 Rate Blood Pressure Blood Pressure 147/67 H 142/65 H 137/73 H [Right Brachial artery] O2 Saturation 96 94 93 06/08/23 06/08/23 06/08/23 05:14 07:25 11:28 Temperature 37.9 C 37.8 C 37.1 C Heart Rate Heart Rate [ 93 72 89 Brachial] Respiratory 17 16 18 Rate Blood Pressure Blood Pressure 151/64 H 151/79 H 141/70 H [Right Brachial artery] O2 Saturation 94 93 93 Oxygen O2 Source Room air I&O (Last 24 Hrs): Intake and Output Totals x24h 06/06/23 06/07/23 06/08/23 23:59 23:59 23:59 Intake Total 780 440 Output Total 175 900 Balance 605 -460 General: Alert, Oriented x3, Other (Lethargic) HEENT: EOMI, Mucous membr. moist/pink Neck: Supple, No JVD Neuro: Alert, Other (Poor memory. Muscle strength 5/5 bilat lower legs. No incontinence.) Cardiovascular: Regular rate, No murmurs Respiratory: No respiratory distress, Breath sounds nml Abdomen: Normal bowel sounds, Soft, No tenderness Extremities: No clubbing, No edema, Other (L hip tenderness) - Results Results: Laboratory Results WBC 14.6 x10^3/uL (4.8-10.8) H 06/08/23 06:21 RBC 4.44 10^6/uL (4.20-5.40) 06/08/23 06:21 Hgb 13.2 g/dL (12.0-16.0) 06/08/23 06:21 Hct 40.8 % (37.0-47.0) 06/08/23 06:21 MCV 91.9 fL (81.0-99.0) 06/08/23 06:21 MCH 29.7 pg (27.0-31.0) 06/08/23 06:21 MCHC 32.4 g/dL (32.0-36.0) 06/08/23 06:21 RDW 13.5 % (12.0-15.0) 06/08/23 06:21 Plt Count 224 10^3/uL (130-450) 06/07/23 06:52 MPV 9.8 fL (7.9-10.8) 06/07/23 06:52 Neut # (Auto) Not Reportable 06/08/23 06:21 Lymph # (Auto) Not Reportable 06/08/23 06:21 [place] # (Auto) Not Reportable 06/08/23 06:21 Eos # (Auto) Not Reportable 06/08/23 06:21 Baso # (Auto) Not Reportable 06/08/23 06:21 Absolute Nucleated RBC Not Reportable 06/08/23 06:21 Total Counted 100 06/08/23 06:21 Band Neuts % (Manual) 2 % (0-10) 06/08/23 06:21 Reactive Lymphs % (Man) 1 % 06/08/23 06:21 Abnorm Lymph % (Manual) 0 % 06/08/23 06:21 Myelocytes % 1 % (-0) H 06/08/23 06:21 Nucleated RBC % Not Reportable 06/08/23 06:21 Neutrophils # (Manual) 11.7 10^3/uL (1.5-6.6) H 06/08/23 06:21 Lymphocytes # (Manual) 1.2 10^3/uL (1.5-3.5) L 06/08/23 06:21 Monocytes # (Manual) 1.3 10^3/uL (0.0-1.0) H 06/08/23 06:21 Eosinophils # (Manual) 0.3 10^3/uL (0-0.7) 06/08/23 06:21 Basophils # (Manual) 0.0 10^3/uL (0-0.1) 06/08/23 06:21 Differential Comment MANUAL DIFFERENTIAL 06/08/23 06:21 Manual Slide Review Indicated 06/07/23 06:52 WBC Morphology 1+ DOHLE BODIES (NORMAL) 2+ VACUOLATION (NORMAL) 06/08/23 06:21 WBC Morphology 1+ DOHLE BODIES (NORMAL) 2+ VACUOLATION (NORMAL) 06/08/23 06:21 Platelet Morphology PLATELET CLUMPING (NORMAL) 06/08/23 06:21 RBC Morph Micro Appear NORMAL APPEARANCE (NORMAL) 06/08/23 06:21 Sodium 134 mmol/L (135-145) L 06/08/23 06:21 Potassium 4.0 mmol/L (3.5-4.5) 06/08/23 06:21 Chloride 102 mmol/L (101-111) 06/08/23 06:21 Carbon Dioxide 24 mmol/L (21-32) 06/08/23 06:21 Anion Gap 8.0 (6-13) 06/08/23 06:21 BUN 19 mg/dL (6-20) 06/08/23 06:21 Creatinine 0.8 mg/dL (0.6-1.3) 06/08/23 06:21 Estimated GFR (MDRD) 69 (>89) L 06/08/23 06:21 Glucose 123 mg/dL (74-104) H 06/08/23 06:21 Lactic Acid 2.1 mmol/L (0.5-2.2) 06/07/23 19:38 Calcium 8.4 mg/dL (8.5-10.3) L 06/08/23 06:21 Urine Color YELLOW 06/07/23 07:03 Urine Clarity HAZY (CLEAR) 06/07/23 07:03 Urine pH 7.0 PH (5.0-7.5) 06/07/23 07:03 Ur Specific [place] 1.015 (1.002-1.030) 06/07/23 07:03 Urine Protein 30 mg/dL (NEGATIVE) H 06/07/23 07:03 Urine Glucose (UA) NEGATIVE mg/dL (NEGATIVE) 06/07/23 07:03 Urine Ketones 15 mg/dL (NEGATIVE) H 06/07/23 07:03 Urine Occult Blood TRACE-INTA (NEGATIVE) 06/07/23 07:03 Urine Nitrite NEGATIVE (NEGATIVE) 06/07/23 07:03 Urine Bilirubin NEGATIVE (NEGATIVE) 06/07/23 07:03 Urine Urobilinogen 1 (NORMAL) E.U./dL (NORMAL) 06/07/23 07:03 Ur Leukocyte Esterase SMALL (NEGATIVE) H 06/07/23 07:03 Urine RBC 0-5 /HPF (0-5) 06/07/23 07:03 Urine WBC >25 /HPF (0-5) H 06/07/23 07:03 Ur Squamous Epith Cells NONE SEEN (<= Few) 06/07/23 07:03 Urine Bacteria Moderate /HPF (None Seen) H 06/07/23 07:03 Ur Microscopic Review INDICATED 06/07/23 07:03 Urine Culture Comments INDICATED 06/07/23 07:03
--- NOTE | 2023-06-08 15:03 | CT Report ---
PROCEDURE: HEAD WO INDICATIONS: AMS TECHNIQUE: Noncontrast 4.5 mm thick angled axial sections acquired from the foramen magnum to the vertex. For r adiation dose reduction, the following was used: automated exposure control, adjustment of mA and/or kV according to patient size. COMPARISON: None. FINDINGS: Image quality: Excellent. CSF spaces: Basal cisterns are patent. No extra-axial fluid collections. Ventricles are normal in size and shape. Brain: No midline shift. No intracranial masses or hemorrhage. Areas of hypoattenuation within the deep and periventricular white matter, nonspecific and likely representing chronic microvascular isch emic change. Age-related global volume loss. Intracranial atherosclerotic vascular calcifications. Gr ay-white matter interface is normal. Skull and face: Calvarium and visualized facial bones are intact, without suspicious lesions. Bilate ral lens replacements. The orbits are otherwise normal in appearance. Sinuses: Visualized sinuses and mastoids are clear. IMPRESSION: No acute intracranial pathology. Reviewed by: Adolfo Perez MD on 06/08/2023 3:02 PM PDT Approved by: Adolfo Perez MD on 06/08/2023 3:02 PM PDT Station ID: [id number]
--- NOTE | 2023-06-08 15:21 | CT Report ---
PROCEDURE: LOWER EXTREMITY WO - LT INDICATIONS: L hip pain after fall at home TECHNIQUE: Noncontrast 3-mm axial sections acquired from the distal tibial shaft to the talar dome, with coronal and sagittal reformats. For radiation dose reduction, the following was used: automated exposure c ontrol, adjustment of mA and/or kV according to patient size. COMPARISON: Left hip radiographs 06/07/2023 FINDINGS: Image quality: Excellent. Bones: No acute osseous fracture or dislocation. Degenerative changes are seen in the included porti on of the lumbar spine. Mild left hip osteoarthrosis. No suspicious intraosseous lesion. Soft tissues: No significant left hip effusion. No soft tissue hematoma is seen. Mild subcutaneous e pollo is seen lateral to the left hip. The articular cartilages, labrum, ligaments, and tendons are no t well evaluated with standard CT. A peritoneal dialysis catheter is partially included. Nonspecific fluid attenuation lesion in the left retroperitoneal region may represent a renal cyst. A few diverti cula are seen in the colon. IMPRESSION: No acute osseous abnormality. Mild left hip osteoarthrosis. Reviewed by: Isak Thacker MD on 06/08/2023 3:20 PM PDT Approved by: Isak Thacker MD on 06/08/2023 3:20 PM PDT Station ID: [id number]
--- NOTE | 2023-06-08 15:39 | CT Report ---
PROCEDURE: LUMBAR SPINE WO INDICATIONS: Fall at home, L hip pain spreads down L leg TECHNIQUE: Noncontrast 3 mm thick sections acquired from the T12 level to the sacrum. Sagittal and coronal refo rmats were constructed. For radiation dose reduction, the following was used: automated exposure co ntrol, adjustment of mA and/or kV according to patient size. COMPARISON: CT abdomen pelvis 06/04/2023. FINDINGS: Image quality: Excellent. Bones: Mild levocurvature of the lumbar spine. Diffusely decreased osseous mineralization. There are multilevel degenerative changes of the lumbar spine with facet arthropathy and disc height loss with degenerative endplate changes and marginal spurring. This is most pronounced at T12-L1 and L4-L5. Tra nsitional vertebral body anatomy is noted with sacralization of the L5 vertebral body. No acute verte bral body compression fractures. No suspicious lytic or blastic bony lesions. No pars defects. Soft tissues: No retroperitoneal masses or hematomas. Visualized aorta is normal in caliber. Bibas ilar subsegmental atelectasis. Trace pericardial effusion. Atherosclerotic vascular calcifications. L eft ureteral stent is partially visualized. Atrophy of the left kidney with mild hydronephrosis versu s fullness of the collecting system. IMPRESSION: 1.Multilevel degenerative changes of the lumbar spine. No acute fractures. 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 Recommend correlation with plain film prior to any intervention. 3.Left ureteral stent in place. Atrophied left kidney. Fullness of left collecting system versus mild hydronephrosis. Reviewed by: Adolfo Perez MD on 06/08/2023 3:38 PM PDT Approved by: Adolfo Perez MD on 06/08/2023 3:38 PM PDT Station ID: [id number]
--- NOTE | 2023-06-08 17:37 | PHARMACY PROGRESS NOTE ---
- Best Possible Medication History Admit Date and Time: 06/07/23 2063 Processed by: Pharmacy Medication History completed: Yes Patient Interview: Completed (MEDREC DONE BY ALESSANDRA. PT GETS CHRONIC MEDS THROUGH [facility]. SHE TAKES A SUPPLEMENT FOR HEART HEALTH BUT NEITHER SHE NOR HER SPOUSE REMEMBERS THE NAME.) Secondary Source(s): Spouse/Significant other (MEDREC DONE BY MANAGER COPY ALESSANDRA. PT GETS CHRONIC MEDS TH[facility]OUGH [facility]. PT ALSO TAKES A SUPPLEMENT FOR HEART HEALTH BUT NEITHER SHE NOR SPOUSE REMEMBERS THE NAME.), Insurance records As the person ultimately responsible for medication therapy, providers are able to order a medication from an existing home medication list in [facility] via the "Reconcile Routine" prior to Confirmation of that medication by client application support specialist. Such practice is discouraged except when the physician, in their clinical judgment, deems that a medical need exists for a medication without regard to previous use.
[2023-06-08] MEDS ORDERED: ATORVASTATIN 40 MG TABLET PO SCH (21:00)
[2023-06-08] MEDS: PRAVASTATIN 40 MG TABLET PO SCH (21:49)
[2023-06-08] MEDS: HYDROcod/ACETAM 5/325 MG TABLET PO PRN (21:49)
[2023-06-09] MEDS: SODIUM CHLORIDE FLUSH 0.9% 10 ML SYRINGE IVP SCH ×6 (00:41→23:51)
[2023-06-09] MEDS: cephALEXin 250 MG CAPSULE PO SCH ×4 (05:51→23:55)
[2023-06-09 06:45] LABS: BASOPHILS % (AUTO) 0.9 %; EOSINOPHILS % (AUTO) 0.1 %; HCT - HEMATOCRIT 39.3 % (37.0-47.0); HGB - HEMOGLOBIN 12.9 g/dL (12.0-16.0); LYMPHOCYTES % (AUTO) 11.1 %; MEAN CORPUSCULAR HEMOGLOBIN 29.6 pg (27.0-31.0); MEAN CORPUSCULAR HGB CONC 32.8 g/dL (32.0-36.0); MEAN CORPUSCULAR VOLUME 90.1 fL (81.0-99.0); MEAN PLATELET VOLUME 9.6 fL (7.9-10.8); MONOCYTES % (AUTO) 11.1 %; PLT - PLATELET COUNT 306 10^3/uL (130-450); RED BLOOD COUNT 4.36 10^6/uL (4.20-5.40); RED CELL DISTRIBUTION WIDTH 13.5 % (12.0-15.0)
[2023-06-09 06:58] LABS: BILIRUBIN,TOTAL 0.8 mg/dL (0.2-1.0); CALCIUM 8.8 mg/dL (8.5-10.3); CREATININE 0.7 mg/dL (0.6-1.3); POTASSIUM 3.9 mmol/L (3.5-4.5); TOTAL PROTEIN 5.9 g/dL (6.4-8.9)
[2023-06-09 07:00] LABS: ABNORMAL LYMPHS % (MANUAL) 0 %
[2023-06-09 08:27] LABS: BAND NEUTROPHILS % (MANUAL) 3 %; DIFFERENTIAL COMMENT MANUAL DIFFERENTIAL; EOSINOPHILS # (MANUAL) 0.5 10^3/uL (0-0.7); LYMPHOCYTES # (MANUAL) 1.6 10^3/uL (1.5-3.5); LYMPHOCYTES % (MANUAL) 13 %; MONOCYTES # (MANUAL) 1.2 10^3/uL (0.0-1.0); MYELOCYTES % (MANUAL) 2 %; NEUTROPHILS # (MANUAL) 8.5 10^3/uL (1.5-6.6)
[2023-06-09] MEDS: MELOXICAM 7.5 MG TABLET PO SCH ×2 (09:20→17:28)
[2023-06-09] MEDS: TAMSULOSIN 0.4 MG CAPSULE PO SCH (09:20)
[2023-06-09] MEDS: lisinopriL 20 MG TABLET PO SCH (09:20)
--- NOTE | 2023-06-09 15:48 | PROVIDER PROGRESS NOTE ---
Assessment/Plan - Problem List (1) AMS (altered mental status) Assessment/Plan: For 2 days post-op, the patient had obvious lethargy and the at bedside stated that this is not her normal mental status; she is usually sharp, quick to answer and has a better memory. He noticed that this began when she got low doses of oxycodone after DCh from the ER several days ago when the stone was found. I did a head CT this admission which showed no acute findings, it was able to be compared to the head CT from that last ER visit several days ago. We presumed her UTI and lingering anesthetic, were adding to this AMS. But today I had a long talk at bedside with the patient's daughter Sheryl who said that her mother has developed poor memory and is more confused for the past 2 months, not just from the narcotics being used recently. Plan: The patient is now officially on the Hospitalist service, transitioned from the Urologist service, in Observation status. I will order PT and OT evals (2) Left hip pain Assessment/Plan: The patient reported having L hip pain after admission. She did not report it at presentation to the ER. X-rays of the left hip and pelvis were done and these showed no areas of fracture or dislocation. I also obtained CT of LS spine and left hip and upper leg, which all came back w/ no fractures, no dislocation, no spinal stenosis. But she has significant arthritis The gave more details about how she fell out of bed on the morning of presentation. He heard a thud and found her on the floor. It took the patient and her 1-1/2 hours to lift her, she was then wheeled to the toilet then brought back but could not be moved from chair back to bed, so the called an ambulance. The patient remembered that she has had left lower leg pain for months but cannot specify how long or what makes it worse or better. The reported she feels better as the days goes on (as she walks more). She continues to have the point tenderness of her left lateral hip but that is improving daily. Plan: Cont her Mobic 7.5 BID, give it with meals and cont Pepecid BID with meals PT and OT evals, she may need rehab at a SNF (3) Fall at home Assessment/Plan: Today the gave more details about how she fell out of bed on the morning of presentation. He heard a thud and found her on the floor. It took the patient and her 1-1/2 hours to lift her, she was then wheeled to the toilet then brought back but could not be moved from chair back to bed, so the called an ambulance. Plan: PT and OT evals Orthostatic VS checks (4) Proteus UTI (urinary tract infection) Assessment/Plan: When she was in the ER several days ago there was no indication of UTI by her urinalysis and she had a normal white count and no fever. At presentation now she had an abnormal urinalysis, elevated white count and the urine culture is growing Proteus as the preliminary identification Plan: We are stopping empiric IV ceftriaxone Urologist has okayed for her to be put on oral antibiotics starting today 06/09 Await final identification and sensitivity results to tailor antibiotic (5) Ureterolithiasis Assessment/Plan: S/P ureteral stent placed by Dr Wu Urologist Plan: Dr. Wu wants her to have a follow-up in his office in 1 to 2 weeks as an outpatient (6) Prerenal azotemia Assessment/Plan: Resolved Labs were all reviewed. Her BUN/creatinine is normal today (7) Hx of essential hypertension Assessment/Plan: Plan: I will slowly resume her usual BP meds, if she is not orthostatic - Current Meds Current Meds: Current Medications Generic Name Dose Route Start Last Admin Trade Name Freq PRN Reason Stop Dose Admin Hydrocodone Bitart/Acetaminophen 1 tab 06/07/23 12:21 06/08/23 21:49 Hydrocod/Acetam 5/325 Mg Tablet PO 1 tab Q4HR PRN Administration Moderate Pain (Level 4-6) Cephalexin 500 mg 06/09/23 06:00 06/09/23 11:58 Cephalexin 250 Mg Capsule PO 500 mg Q6HR KIT Administration Lisinopril 20 mg 06/08/23 11:00 06/09/23 09:20 Lisinopril 20 Mg Tablet PO 20 mg DAILY KIT Administration Pravastatin Sodium 80 mg 06/08/23 10:43 06/08/23 21:49 Pravastatin 40 Mg Tablet PO 80 mg QPM KIT Administration Sodium Chloride 10 ml 06/07/23 17:00 06/09/23 09:21 Sodium Chloride Flush 0.9% 10 Ml Syringe IVP Not Given 0100,0900,1700 KIT Tamsulosin HCl 0.4 mg 06/08/23 09:00 06/09/23 09:20 Tamsulosin 0.4 Mg Capsule PO 0.4 mg DAILY KIT Administration - Lab Result Fish Bone Diagrams: 06/11/23 07:49 06/11/23 07:49 - Additional Planning My Orders: My Active Orders 06/09/23 17:00 Famotidine [Pepcid] 20 mg PO BIDWM Meloxicam [Mobic] 7.5 mg PO BIDWM 06/10/23 05:00 VITAMIN D 25-HYDROXY [REFLAB] DAILYLAB Subjective - Subjective Patient Reports: Feeling Better (Not as weak, feels more alert, L hip pain is better every day) Objective Vital Signs: Vital Signs - 24 hr 06/08/23 06/09/23 06/09/23 21:00 00:46 05:20 Temperature 37.0 C 36.5 C 36.3 C L Heart Rate [ 84 78 75 Brachial] Respiratory 16 17 17 Rate Blood Pressure 125/62 144/75 H [Left Brachial artery] Blood Pressure 130/58 L [Right Brachial artery] O2 Saturation 94 94 06/09/23 06/09/23 08:21 13:00 Temperature 36.4 C L 36.3 C L Heart Rate [ 80 Brachial] Respiratory 18 18 Rate Blood Pressure [Left Brachial artery] Blood Pressure 151/73 H [Right Brachial artery] O2 Saturation 93 Oxygen O2 Source Room air I&O (Last 24 Hrs): Intake and Output Totals x24h 06/07/23 06/08/23 06/09/23 23:59 23:59 23:59 Intake Total 780 1410 1300 Output Total 175 1400 200 Balance 379 14 2634 General: Alert, No acute distress HEENT: Atraumatic, EOMI Neck: Supple, No JVD Neuro: Alert, Non Focal, Other (Poor memory) Cardiovascular: Regular rate Respiratory: No respiratory distress Abdomen: Soft, No tenderness Extremities: No clubbing, No edema, Other (L hip pain w/ wt bearing) - Results Results: Laboratory Results WBC 12.0 x10^3/uL (4.8-10.8) H 06/09/23 06:25 RBC 4.36 10^6/uL (4.20-5.40) 06/09/23 06:25 Hgb 12.9 g/dL (12.0-16.0) 06/09/23 06:25 Hct 39.3 % (37.0-47.0) 06/09/23 06:25 MCV 90.1 fL (81.0-99.0) 06/09/23 06:25 MCH 29.6 pg (27.0-31.0) 06/09/23 06:25 MCHC 32.8 g/dL (32.0-36.0) 06/09/23 06:25 RDW 13.5 % (12.0-15.0) 06/09/23 06:25 Plt Count 306 10^3/uL (130-450) 06/09/23 06:25 MPV 9.6 fL (7.9-10.8) 06/09/23 06:25 Neut # (Auto) Not Reportable 06/09/23 06:25 Lymph # (Auto) Not Reportable 06/09/23 06:25 [place] # (Auto) Not Reportable 06/09/23 06:25 Eos # (Auto) Not Reportable 06/09/23 06:25 Baso # (Auto) Not Reportable 06/09/23 06:25 Absolute Nucleated RBC Not Reportable 06/09/23 06:25 Total Counted 100 06/09/23 06:25 Band Neuts % (Manual) 3 % (0-10) 06/09/23 06:25 Reactive Lymphs % (Man) 1 % 06/08/23 06:21 Abnorm Lymph % (Manual) 0 % 06/09/23 06:25 Myelocytes % 2 % (-0) H 06/09/23 06:25 Nucleated RBC % Not Reportable 06/09/23 06:25 Neutrophils # (Manual) 8.5 10^3/uL (1.5-6.6) H 06/09/23 06:25 Lymphocytes # (Manual) 1.6 10^3/uL (1.5-3.5) 06/09/23 06:25 Monocytes # (Manual) 1.2 10^3/uL (0.0-1.0) H 06/09/23 06:25 Eosinophils # (Manual) 0.5 10^3/uL (0-0.7) 06/09/23 06:25 Basophils # (Manual) 0.0 10^3/uL (0-0.1) 06/09/23 06:25 Differential Comment MANUAL DIFFERENTIAL 06/09/23 06:25 Manual Slide Review Indicated 06/07/23 06:52 WBC Morphology 1+ DOHLE BODIES (NORMAL) 2+ VACUOLATION (NORMAL) 06/08/23 06:21 WBC Morphology 1+ DOHLE BODIES (NORMAL) 2+ VACUOLATION (NORMAL) 06/08/23 06:21 Platelet Morphology PLATELET CLUMPING (NORMAL) 06/08/23 06:21 RBC Morph Micro Appear NORMAL APPEARANCE (NORMAL) 06/08/23 06:21 Sodium 137 mmol/L (135-145) 06/09/23 06:25 Potassium 3.9 mmol/L (3.5-4.5) 06/09/23 06:25 Chloride 101 mmol/L (101-111) 06/09/23 06:25 Carbon Dioxide 29 mmol/L (21-32) 06/09/23 06:25 Anion Gap 7.0 (6-13) 06/09/23 06:25 BUN 14 mg/dL (6-20) 06/09/23 06:25 Creatinine 0.7 mg/dL (0.6-1.3) 06/09/23 06:25 Estimated GFR (MDRD) 80 (>89) L 06/09/23 06:25 Glucose 118 mg/dL (74-104) H 06/09/23 06:25 Lactic Acid 2.1 mmol/L (0.5-2.2) 06/07/23 19:38 Calcium 8.8 mg/dL (8.5-10.3) 06/09/23 06:25 Total Bilirubin 0.8 mg/dL (0.2-1.0) 06/09/23 06:25 AST 53 IU/L (10-42) H 06/09/23 06:25 ALT 56 IU/L (10-60) 06/09/23 06:25 Alkaline Phosphatase 244 IU/L (42-121) H 06/09/23 06:25 Total Protein 5.9 g/dL (6.4-8.9) L 06/09/23 06:25 Albumin 3.0 g/dL (3.2-5.5) L 06/09/23 06:25 Globulin 2.9 g/dL (2.1-4.2) 06/09/23 06:25 Albumin/Globulin Ratio 1.0 (1.0-2.2) 06/09/23 06:25 Urine Color YELLOW 06/07/23 07:03 Urine Clarity HAZY (CLEAR) 06/07/23 07:03 Urine pH 7.0 PH (5.0-7.5) 06/07/23 07:03 Ur Specific [place] 1.015 (1.002-1.030) 06/07/23 07:03 Urine Protein 30 mg/dL (NEGATIVE) H 06/07/23 07:03 Urine Glucose (UA) NEGATIVE mg/dL (NEGATIVE) 06/07/23 07:03 Urine Ketones 15 mg/dL (NEGATIVE) H 06/07/23 07:03 Urine Occult Blood TRACE-INTA (NEGATIVE) 06/07/23 07:03 Urine Nitrite NEGATIVE (NEGATIVE) 06/07/23 07:03 Urine Bilirubin NEGATIVE (NEGATIVE) 06/07/23 07:03 Urine Urobilinogen 1 (NORMAL) E.U./dL (NORMAL) 06/07/23 07:03 Ur Leukocyte Esterase SMALL (NEGATIVE) H 06/07/23 07:03 Urine RBC 0-5 /HPF (0-5) 06/07/23 07:03 Urine WBC >25 /HPF (0-5) H 06/07/23 07:03 Ur Squamous Epith Cells NONE SEEN (<= Few) 06/07/23 07:03 Urine Bacteria Moderate /HPF (None Seen) H 06/07/23 07:03 Ur Microscopic Review INDICATED 06/07/23 07:03 Urine Culture Comments INDICATED 06/07/23 07:03
[2023-06-09] MEDS: FAMOTIDINE 20 MG TABLET PO SCH (17:29)
[2023-06-09] MEDS: PRAVASTATIN 40 MG TABLET PO SCH (20:56)
[2023-06-09] MEDS: HYDROcod/ACETAM 5/325 MG TABLET PO PRN (20:57)
[2023-06-10] MEDS: cephALEXin 250 MG CAPSULE PO SCH ×3 (06:22→17:29)
[2023-06-10] MEDS: MELOXICAM 7.5 MG TABLET PO SCH ×2 (08:00→17:29)
[2023-06-10] MEDS: TAMSULOSIN 0.4 MG CAPSULE PO SCH (08:00)
[2023-06-10] MEDS: lisinopriL 20 MG TABLET PO SCH (08:00)
[2023-06-10] MEDS: FAMOTIDINE 20 MG TABLET PO SCH ×2 (08:01→17:29)
[2023-06-10] MEDS: SODIUM CHLORIDE FLUSH 0.9% 10 ML SYRINGE IVP SCH (08:04)
[2023-06-10 08:35] LABS: BASOPHILS % (AUTO) 1.1 %; EOSINOPHILS % (AUTO) 0.1 %; HCT - HEMATOCRIT 40.7 % (37.0-47.0); HGB - HEMOGLOBIN 13.2 g/dL (12.0-16.0); LYMPHOCYTES % (AUTO) 11.4 %; MEAN CORPUSCULAR HEMOGLOBIN 29.3 pg (27.0-31.0); MEAN CORPUSCULAR HGB CONC 32.4 g/dL (32.0-36.0); MEAN CORPUSCULAR VOLUME 90.2 fL (81.0-99.0); MEAN PLATELET VOLUME 9.6 fL (7.9-10.8); MONOCYTES % (AUTO) 11.2 %; NEUTROPHILS % (AUTO) 66.6 %; PLT - PLATELET COUNT 370 10^3/uL (130-450); RED BLOOD COUNT 4.51 10^6/uL (4.20-5.40); RED CELL DISTRIBUTION WIDTH 13.8 % (12.0-15.0); WHITE BLOOD COUNT 9.3 x10^3/uL (4.8-10.8)
[2023-06-10 08:48] LABS: ABNORMAL LYMPHS % (MANUAL) 0 %
[2023-06-10 09:11] LABS: BAND NEUTROPHILS % (MANUAL) 2 %; DIFFERENTIAL COMMENT MANUAL DIFFERENTIAL; EOSINOPHILS # (MANUAL) 0.6 10^3/uL (0-0.7); LYMPHOCYTES # (MANUAL) 1.3 10^3/uL (1.5-3.5); LYMPHOCYTES % (MANUAL) 6 %; MONOCYTES # (MANUAL) 1.5 10^3/uL (0.0-1.0); REACTIVE LYMPHS % (MANUAL) 8 %
[2023-06-10] MEDS ORDERED: LORazepam 2 MG/ML VIAL IVP STA (15:49)
[2023-06-10] MEDS ORDERED: PHENYTOIN INJ 1,000 MG in SODIUM CHLORIDE 0.9% 100ML 100 ML IV ONE (16:30)
--- NOTE | 2023-06-10 19:17 | PROVIDER PROGRESS NOTE ---
Assessment/Plan - Problem List (1) AMS (altered mental status) Assessment/Plan: For 2 days post-op, the patient had obvious lethargy and the at bedside stated that this is not her normal mental status; she is usually sharp, quick to answer and has a better memory. He noticed that this began when she got low doses of oxycodone after DCh from the ER several days ago when the stone was found. I did a head CT this admission which showed no acute findings, it was able to be compared to the head CT from that last ER visit several days ago. Yesterday I had a long talk at bedside with the patient's daughter Sheryl who said that her mother has developed poor memory and is more confused for the past 2 months We presumed her UTI and lingering anesthetic, were adding to this AMS. I have had the patient working with PT and OT and they also reported poor memory and advised that she is not safe to discharge home. Plan: The patient is now officially on the Hospitalist service, transitioned from the Urologist service, in Observation status. We are awaiting [place] to approve and arrange a SNF, for her to have PT and OT rehab, before returning home. (2) Left hip pain Assessment/Plan: The patient reported having L hip pain after admission. She did not report it at presentation to the ER. X-rays of the left hip and pelvis were done and these showed no areas of fracture or dislocation. I also obtained CT of LS spine and left hip and upper leg, which all came back w/ no fractures, no dislocation, no spinal stenosis. But she has significant arthritis The gave more details about how she fell out of bed on the morning of presentation. He heard a thud and found her on the floor. It took the patient and her 1-1/2 hours to lift her, she was then wheeled to the toilet then brought back but could not be moved from chair back to bed, so the called an ambulance. The patient remembered that she has had left lower leg pain for months but cannot specify how long or what makes it worse or better. The reported she feels better as the days goes on (as she walks more). She continues to have the point tenderness of her left lateral hip but that is improving daily. Plan: Cont her Mobic 7.5 BID, give it with meals and cont Pepecid BID with meals PT and OT abbie reported that she is not safe to be discharged home, she needs rehab at a SNF (3) Fall at home Assessment/Plan: The gave more details about how she fell out of bed on the morning of presentation. He heard a thud and found her on the floor. It took the patient and her 1-1/2 hours to lift her, she was then wheeled to the toilet then brought back but could not be moved from chair back to bed, so the called an ambulance. Plan: PT and OT to continue Orthostatic VS checks (4) Proteus UTI (urinary tract infection) Assessment/Plan: When she was in the ER several days ago there was no indication of UTI by her urinalysis and she had a normal white count and no fever. At presentation now, she had an abnormal urinalysis, elevated white count and the urine culture is growing Proteus as the preliminary identification Plan: Dr Wu, Urol changed her Cefrrtrtiaxone to oral Keflex 500 QID, starting 06/09 Await final sensitivity results to tailor antibiotics if needed (5) Ureterolithiasis Assessment/Plan: S/P ureteral stent placed on 1st day of hospitalization by Dr Wu Urologist Plan: Dr. Wu wants her to have a follow-up in his office in 1 to 2 weeks as an outpatient (6) Prerenal azotemia Assessment/Plan: Resolved Labs were all reviewed. Her BUN/creatinine is normal (7) Hx of essential hypertension Assessment/Plan: Plan: I have slowly resumed her usual BP meds. Will monitor orthostatic VS - Current Meds Current Meds: Current Medications Generic Name Dose Route Start Last Admin Trade Name Freq PRN Reason Stop Dose Admin Hydrocodone Bitart/Acetaminophen 1 tab 06/07/23 12:21 06/09/23 20:57 Hydrocod/Acetam 5/325 Mg Tablet PO 1 tab Q4HR PRN Administration Moderate Pain (Level 4-6) Cephalexin 500 mg 06/09/23 06:00 06/10/23 17:29 Cephalexin 250 Mg Capsule PO 500 mg Q6HR KIT Administration Famotidine 20 mg 06/09/23 17:00 06/10/23 17:29 Famotidine 20 Mg Tablet PO 20 mg BIDWM KIT Administration Lisinopril 20 mg 06/08/23 11:00 06/10/23 08:00 Lisinopril 20 Mg Tablet PO 20 mg DAILY KIT Administration Meloxicam 7.5 mg 06/09/23 17:00 06/10/23 17:29 Meloxicam 7.5 Mg Tablet PO 7.5 mg BIDWM KIT Administration Pravastatin Sodium 80 mg 06/08/23 10:43 06/09/23 20:56 Pravastatin 40 Mg Tablet PO 80 mg QPM KIT Administration Tamsulosin HCl 0.4 mg 06/08/23 09:00 06/10/23 08:00 Tamsulosin 0.4 Mg Capsule PO 0.4 mg DAILY KIT Administration - Lab Result Fish Bone Diagrams: 06/11/23 07:49 06/11/23 07:49 - Additional Planning My Orders: My Active Orders 06/10/23 06:18 VITAMIN D 25-HYDROXY [REFLAB] DAILYLAB 06/11/23 05:00 BMP - BASIC METABOLIC PANEL [CHEM] DAILYLAB CBC - COMP BLD CT W/AUTO DIFF [HEME] DAILYLAB Subjective - Subjective Patient Reports: Resting Comfortably Nursing Reports: Other (Patient is not oriented to place or time, only to person) Objective Vital Signs: Vital Signs - 24 hr 06/09/23 06/09/23 06/10/23 19:31 23:58 06:52 Temperature 36.7 C 36.9 C 36.8 C Heart Rate [ 81 71 73 Brachial] Respiratory 19 16 18 Rate Blood Pressure 151/76 H 140/67 H 146/73 H [Left Brachial artery] O2 Saturation 93 94 95 06/10/23 06/10/23 06/10/23 09:00 13:00 16:13 Temperature 36.6 C 36.7 C 36.7 C Heart Rate [ 79 78 75 Brachial] Respiratory 18 18 18 Rate Blood Pressure 140/65 H 147/89 H 149/66 H [Left Brachial artery] O2 Saturation 96 96 96 Oxygen O2 Source Room air I&O (Last 24 Hrs): Intake and Output Totals x24h 06/08/23 06/09/23 06/10/23 23:59 23:59 23:59 Intake Total 1410 1870 600 Output Total 1400 500 800 Balance 10 1370 -200 General: Alert, No acute distress HEENT: Atraumatic, EOMI Neck: Supple, No JVD Neuro: Alert, Non Focal, Other (Poor memory) Cardiovascular: Regular rate Respiratory: No respiratory distress Abdomen: Soft, No tenderness Extremities: No clubbing, No edema, Other (Left hip painful) - Results Results: Laboratory Results WBC 9.3 x10^3/uL (4.8-10.8) 06/10/23 06:18 RBC 4.51 10^6/uL (4.20-5.40) 06/10/23 06:18 Hgb 13.2 g/dL (12.0-16.0) 06/10/23 06:18 Hct 40.7 % (37.0-47.0) 06/10/23 06:18 MCV 90.2 fL (81.0-99.0) 06/10/23 06:18 MCH 29.3 pg (27.0-31.0) 06/10/23 06:18 MCHC 32.4 g/dL (32.0-36.0) 06/10/23 06:18 RDW 13.8 % (12.0-15.0) 06/10/23 06:18 Plt Count 370 10^3/uL (130-450) 06/10/23 06:18 MPV 9.6 fL (7.9-10.8) 06/10/23 06:18 Neut # (Auto) Not Reportable 06/10/23 06:18 Lymph # (Auto) Not Reportable 06/10/23 06:18 [place] # (Auto) Not Reportable 06/10/23 06:18 Eos # (Auto) Not Reportable 06/10/23 06:18 Baso # (Auto) Not Reportable 06/10/23 06:18 Absolute Nucleated RBC Not Reportable 06/10/23 06:18 Total Counted 100 06/10/23 06:18 Band Neuts % (Manual) 2 % (0-10) 06/10/23 06:18 Reactive Lymphs % (Man) 8 % 06/10/23 06:18 Abnorm Lymph % (Manual) 0 % 06/10/23 06:18 Myelocytes % 2 % (-0) H 06/09/23 06:25 Nucleated RBC % Not Reportable 06/10/23 06:18 Neutrophils # (Manual) 6.0 10^3/uL (1.5-6.6) 06/10/23 06:18 Lymphocytes # (Manual) 1.3 10^3/uL (1.5-3.5) L 06/10/23 06:18 Monocytes # (Manual) 1.5 10^3/uL (0.0-1.0) H 06/10/23 06:18 Eosinophils # (Manual) 0.6 10^3/uL (0-0.7) 06/10/23 06:18 Basophils # (Manual) 0.0 10^3/uL (0-0.1) 06/10/23 06:18 Differential Comment MANUAL DIFFERENTIAL 06/10/23 06:18 Manual Slide Review Indicated 06/07/23 06:52 WBC Morphology 1+ DOHLE BODIES (NORMAL) 2+ VACUOLATION (NORMAL) 06/08/23 06:21 WBC Morphology 1+ DOHLE BODIES (NORMAL) 2+ VACUOLATION (NORMAL) 06/08/23 06:21 Platelet Morphology PLATELET CLUMPING (NORMAL) 06/08/23 06:21 RBC Morph Micro Appear NORMAL APPEARANCE (NORMAL) 06/08/23 06:21 Sodium 137 mmol/L (135-145) 06/09/23 06:25 Potassium 3.9 mmol/L (3.5-4.5) 06/09/23 06:25 Chloride 101 mmol/L (101-111) 06/09/23 06:25 Carbon Dioxide 29 mmol/L (21-32) 06/09/23 06:25 Anion Gap 7.0 (6-13) 06/09/23 06:25 BUN 14 mg/dL (6-20) 06/09/23 06:25 Creatinine 0.7 mg/dL (0.6-1.3) 06/09/23 06:25 Estimated GFR (MDRD) 80 (>89) L 06/09/23 06:25 Glucose 118 mg/dL (74-104) H 06/09/23 06:25 Lactic Acid 2.1 mmol/L (0.5-2.2) 06/07/23 19:38 Calcium 8.8 mg/dL (8.5-10.3) 06/09/23 06:25 Total Bilirubin 0.8 mg/dL (0.2-1.0) 06/09/23 06:25 AST 53 IU/L (10-42) H 06/09/23 06:25 ALT 56 IU/L (10-60) 06/09/23 06:25 Alkaline Phosphatase 244 IU/L (42-121) H 06/09/23 06:25 Total Protein 5.9 g/dL (6.4-8.9) L 06/09/23 06:25 Albumin 3.0 g/dL (3.2-5.5) L 06/09/23 06:25 Globulin 2.9 g/dL (2.1-4.2) 06/09/23 06:25 Albumin/Globulin Ratio 1.0 (1.0-2.2) 06/09/23 06:25 Urine Color YELLOW 06/07/23 07:03 Urine Clarity HAZY (CLEAR) 06/07/23 07:03 Urine pH 7.0 PH (5.0-7.5) 06/07/23 07:03 Ur Specific [place] 1.015 (1.002-1.030) 06/07/23 07:03 Urine Protein 30 mg/dL (NEGATIVE) H 06/07/23 07:03 Urine Glucose (UA) NEGATIVE mg/dL (NEGATIVE) 06/07/23 07:03 Urine Ketones 15 mg/dL (NEGATIVE) H 06/07/23 07:03 Urine Occult Blood TRACE-INTA (NEGATIVE) 06/07/23 07:03 Urine Nitrite NEGATIVE (NEGATIVE) 06/07/23 07:03 Urine Bilirubin NEGATIVE (NEGATIVE) 06/07/23 07:03 Urine Urobilinogen 1 (NORMAL) E.U./dL (NORMAL) 06/07/23 07:03 Ur Leukocyte Esterase SMALL (NEGATIVE) H 06/07/23 07:03 Urine RBC 0-5 /HPF (0-5) 06/07/23 07:03 Urine WBC >25 /HPF (0-5) H 06/07/23 07:03 Ur Squamous Epith Cells NONE SEEN (<= Few) 06/07/23 07:03 Urine Bacteria Moderate /HPF (None Seen) H 06/07/23 07:03 Ur Microscopic Review INDICATED 06/07/23 07:03 Urine Culture Comments INDICATED 06/07/23 07:03
[2023-06-10] MEDS ORDERED: levETIRAcetam INJ 1,000 MG in SODIUM CHLORIDE 0.9% 100ML 100 ML IV SCH (21:00)
[2023-06-10] MEDS: PRAVASTATIN 40 MG TABLET PO SCH (21:33)
[2023-06-10] MEDS: HYDROcod/ACETAM 5/325 MG TABLET PO PRN (21:33)
[2023-06-11] MEDS: cephALEXin 250 MG CAPSULE PO SCH ×4 (00:18→17:14)
[2023-06-11 07:54] LABS: BASOPHILS # (AUTO) 0.1 10^3/uL (0.0-0.1); EOSINOPHILS % (AUTO) 0.1 %; HCT - HEMATOCRIT 38.4 % (37.0-47.0); HGB - HEMOGLOBIN 12.4 g/dL (12.0-16.0); LYMPHOCYTES # (AUTO) 1.1 10^3/uL (1.5-3.5); LYMPHOCYTES % (AUTO) 12.6 %; MEAN CORPUSCULAR HEMOGLOBIN 29.2 pg (27.0-31.0); MEAN CORPUSCULAR HGB CONC 32.3 g/dL (32.0-36.0); MEAN CORPUSCULAR VOLUME 90.6 fL (81.0-99.0); MEAN PLATELET VOLUME 8.9 fL (7.9-10.8); MONOCYTES # (AUTO) 0.9 10^3/uL (0.0-1.0); NEUTROPHILS # (AUTO) 6.1 10^3/uL (1.5-6.6); NEUTROPHILS % (AUTO) 69.6 %; PLT - PLATELET COUNT 397 10^3/uL (130-450); RED BLOOD COUNT 4.24 10^6/uL (4.20-5.40); RED CELL DISTRIBUTION WIDTH 13.7 % (12.0-15.0); WHITE BLOOD COUNT 8.8 x10^3/uL (4.8-10.8)
[2023-06-11 08:06] LABS: CALCIUM 8.8 mg/dL (8.5-10.3); CREATININE 0.7 mg/dL (0.6-1.3); POTASSIUM 3.9 mmol/L (3.5-4.5)
[2023-06-11] MEDS: FAMOTIDINE 20 MG TABLET PO SCH ×2 (08:40→16:59)
[2023-06-11] MEDS: lisinopriL 20 MG TABLET PO SCH (08:40)
[2023-06-11] MEDS: MELOXICAM 7.5 MG TABLET PO SCH ×2 (08:40→16:59)
[2023-06-11] MEDS: TAMSULOSIN 0.4 MG CAPSULE PO SCH (08:40)
--- NOTE | 2023-06-11 09:31 | Discharge Plan ---
Discharge Plan for SNF / LONG-TERM - Discharge Plan And Transition Orders Problem Reviewed?: Yes Disposition: 03 SNF DC/Xfer Condition: Fair Allergies and Adverse Reactions: Allergies Allergy/AdvReac Type Severity Reaction Status Date / Time Penicillins Allergy Unknown Verified 06/07/23 12:13 Health Concerns: Patient was hospitalized due to weakness, had a fall at home, had altered mental status from a UTI and an obstructing renal stone was found and she received a stent placed by Urology. She has been on antibiotics for the UTI. She had evaluation of the hip pain onto which she fell, and there were no fractures. She has arthritis seen. Her altered mental status improved only minimally so she had a head CT and this showed no stroke. She is extremely deconditioned due to longstanding weakness, arthritic pain of her left arm and left leg, and we learned she has had this worsening memory for the past 2 months. She needs PT and OT rehab at a SNF and to finish her course of antibiotics. Plan of Treatment: As above. And she needs a Urology F/U as an outpatient with Dr Wu in approx. 2 weeks. Care Goals: Improvement in symptoms and stabilization are the goals. Assessment: The patient and family understand and are agreeable with the plan. - SNF / LONG-TERM Transition Orders Under the care of (Name): [facility] staff provider Discharge Diagnosis: (1) UTI (urinary tract infection) Needs to finish oral antibiotics (2) Ureterolithiasis Status post ureteral stent done by urology. Needs urology follow-up in 2 weeks (3) Prerenal azotemia Resolved (4) AMS (altered mental status) Unchanged (5) Left hip pain Improved (6) Fall at home As per Hx (7) Generalized weakness From deconditioning and arthritis (8) Arthritis On Mobic and PPI (8) Hypertension Stable on meds Medicare Certification Statement: I certify that Post Hospital intermediate care is medically necessary on a continuing basis for any of the conditions for which she/he is receiving care during hospitalization. Notify PCP of admission and forward orders to primary provider for signature. Weight on admission and: Monthly Call PCP immediately if weight increases by: 5 kg Other Notification Orders: Call PCP immediately if patient develops dyspnea, chest pain/tightness or edema. Additional Bowel Program Orders: If no BM after 2 days, nurse may give M.O.M. 30ml PO PRN and/or ducolax Supp 1 NH and/or RACHEL 250mg P.O., and/or senna 1-2 tabs PO. On day 3 nurse may give repeat above order until residents constipation is resolved. Medication Orders: PLEASE REFER TO THE DISCHARGE MEDICATION LIST. - Medications New Prescriptions: cephALEXin [Keflex] 500 mg PO Q6H #28 cap HYDROcod/ACETAM 5/325 [Craig 5/325] 1 tab PO Q6H PRN #10 tab PRN Reason: Moderate Pain (Level 4-6)
--- NOTE | 2023-06-11 17:17 | PROVIDER PROGRESS NOTE ---
Assessment/Plan - Problem List (1) AMS (altered mental status) Assessment/Plan: For 2 days post-op, the patient had obvious lethargy and the at bedside stated that this is not her normal mental status; she is usually sharp, quick to answer and has a better memory, he said. He noticed that this began when she got low doses of oxycodone after DCh from the ER several days ago when the stone was found. We presumed her UTI and lingering anesthetic, were adding to ongoing AMS. The patient was then transitioned to the Hospitalist service from the Urologist service, in Observation status. I did a head CT this admission which showed no acute findings, it was able to be compared to the head CT from that last ER visit several days ago. On 06/09 I had a long talk at bedside with the patient's daughter Sheryl who said that her mother has developed poor memory and is more confused for the past 2 months, not just past 1 week I have had the patient working with PT and OT and they also report she has poor memory, is disoriented but can cover it, and advised that she is not safe to discharge home, since the patient is the primary caregiver Plan: We were awaiting [place] to approve a SNF, for her to have more PT and OT rehab before returning home, and she was accepted at [facility]. However, today it was learned that [place] is not her primary health insurance. Medicare is primary. And she was then turned down by [facility] today. SW is to speak to the re their options, and SW also updated the pt's daughter today by phone. I updated the at bedside today. (2) Urinary tract infection due to Proteus Assessment/Plan: When she was in the ER 4 days ago there was no indication of UTI by her urinalysis and she had a normal white count and no fever. At presentation now she has an abnormal urinalysis, elevated white count, and the urine culture is identified as growing Proteus, and I reviewed sensitivities. Plan: Dr Wu, Urol, changed her iv Ceftriaxone to oral Keflex 500 QID (which it is sens to), starting 06/09, and he advised a 7-day total course of treatment, so thru 06/13/23 (3) Ureterolithiasis Assessment/Plan: S/P ureteral stent placed by Dr Wu Urologist Plan: Dr. Wu wants her to have a follow-up in his office in 1 to 2 weeks as an outpatient (4) Deconditioning Assessment/Plan: Patient has been bedbound now with limited activity because of the left hip pain after the fall. She is working with PT and OT. Plan: We hope she could get PT and OT at a SNF vs Home Health. SW to work on the discharge plan. (5) Left hip pain Assessment/Plan: The patient reported this after admission. She did not report it at presentation to the ER yesterday. X-rays of the left hip and pelvis were done yesterday evening and these showed no areas of fracture or dislocation. Today the gave more details about how she fell out of bed on the morning of presentation. He heard a thud and found her on the floor. It took the patient and her 1-1/2 hours to lift her, she was then wheeled to the toilet then brought back but could not be moved from chair back to bed, so the called an ambulance. The patient remembered that she has had left lower leg pain for months but ca nnot specify how long or what makes it worse or better. She continues to have the point tenderness of her left lateral hip but much improved today. I obtained CT of LS spine and left hip and upper leg, which all came back w/ no fractures, no dislocation, no spinal stenosis. But she has significant arthritis. PT evaluation while bearing weight on the L leg caused 10/10 pain, which is slowly improving. Plan: Cont her Mobic 7.5 BID will give it with meals and cont Pepcid BID with meals Cont PT and OT rehab (6) Fall at home Assessment/Plan: The gave more details about how she fell out of bed on the morning of presentation. He heard a thud and found her on the floor. It took the patient and her 1-1/2 hours to lift her, she was then wheeled to the toilet then brought back but could not be moved from chair back to bed, so the c alled an ambulance. Plan: PT and OT rehab needed Orthostatic VS checks (7) Prerenal azotemia Assessment/Plan: Resolved Labs were all reviewed. Her BUN/creatinine is normal today (8) Hx of essential hypertension Assessment/Plan: Plan: I have slowly resumed her usual BP meds Cont to check orthostatic VS - Current Meds Current Meds: Current Medications Generic Name Dose Route Start Last Admin Trade Name Kenisha PRN Reason Stop Dose Admin Hydrocodone Bitart/Acetaminophen 1 tab 06/07/23 12:21 06/10/23 21:33 Hydrocod/Acetam 5/325 Mg Tablet PO 1 tab Q4HR PRN Administration Moderate Pain (Level 4-6) Cephalexin 500 mg 06/09/23 06:00 06/11/23 17:14 Cephalexin 250 Mg Capsule PO 500 mg Q6HR KIT Administration Famotidine 20 mg 06/09/23 17:00 06/11/23 16:59 Famotidine 20 Mg Tablet PO 20 mg BIDWM KIT Administration Lisinopril 20 mg 06/08/23 11:00 06/11/23 08:40 Lisinopril 20 Mg Tablet PO 20 mg DAILY KIT Administration Meloxicam 7.5 mg 06/09/23 17:00 06/11/23 16:59 Meloxicam 7.5 Mg Tablet PO 7.5 mg BIDWM KIT Administration Pravastatin Sodium 80 mg 06/08/23 10:43 06/10/23 21:33 Pravastatin 40 Mg Tablet PO 80 mg QPM KIT Administration Tamsulosin HCl 0.4 mg 06/08/23 09:00 06/11/23 08:40 Tamsulosin 0.4 Mg Capsule PO 0.4 mg DAILY KIT Administration - Lab Result Fish Bone Diagrams: 06/11/23 07:49 06/11/23 07:49 - Additional Planning My Orders: My Active Orders 06/11/23 11:37 Shower [RC] ONCE Objective Vital Signs: Vital Signs - 24 hr 06/10/23 06/11/23 06/11/23 20:29 00:26 05:59 Temperature 37.1 C 36.9 C 36.7 C Heart Rate [ 72 75 70 Brachial] Respiratory 25 H 20 20 Rate Blood Pressure [Left Brachial artery] Blood Pressure 146/64 H 140/66 H 146/65 H [Right Brachial artery] O2 Saturation 98 93 94 06/11/23 06/11/23 06/11/23 08:19 13:00 16:21 Temperature 36.6 C 36.8 C 37.2 C Heart Rate [ 77 87 78 Brachial] Respiratory 18 18 Rate Blood Pressure 141/73 H 148/70 H [Left Brachial artery] Blood Pressure 150/71 H [Right Brachial artery] O2 Saturation 94 95 94 Oxygen O2 Source Room air I&O (Last 24 Hrs): Intake and Output Totals x24h 06/09/23 06/10/23 06/11/23 23:59 23:59 23:59 Intake Total 1870 600 320 Output Total 500 1600 500 Balance 1370 -1000 -180 - Results Results: Laboratory Results WBC 8.8 x10^3/uL (4.8-10.8) 06/11/23 07:49 RBC 4.24 10^6/uL (4.20-5.40) 06/11/23 07:49 Hgb 12.4 g/dL (12.0-16.0) 06/11/23 07:49 Hct 38.4 % (37.0-47.0) 06/11/23 07:49 MCV 90.6 fL (81.0-99.0) 06/11/23 07:49 MCH 29.2 pg (27.0-31.0) 06/11/23 07:49 MCHC 32.3 g/dL (32.0-36.0) 06/11/23 07:49 RDW 13.7 % (12.0-15.0) 06/11/23 07:49 Plt Count 397 10^3/uL (130-450) 06/11/23 07:49 MPV 8.9 fL (7.9-10.8) 06/11/23 07:49 Neut # (Auto) 6.1 10^3/uL (1.5-6.6) 06/11/23 07:49 Lymph # (Auto) 1.1 10^3/uL (1.5-3.5) L 06/11/23 07:49 [place] # (Auto) 0.9 10^3/uL (0.0-1.0) 06/11/23 07:49 Eos # (Auto) 0.0 10^3/uL (0.0-0.7) 06/11/23 07:49 Baso # (Auto) 0.1 10^3/uL (0.0-0.1) 06/11/23 07:49 Absolute Nucleated RBC 0.00 x10^3/uL 06/11/23 07:49 Total Counted 100 06/10/23 06:18 Band Neuts % (Manual) 2 % (0-10) 06/10/23 06:18 Reactive Lymphs % (Man) 8 % 06/10/23 06:18 Abnorm Lymph % (Manual) 0 % 06/10/23 06:18 Myelocytes % 2 % (-0) H 06/09/23 06:25 Nucleated RBC % 0.0 /100WBC 06/11/23 07:49 Neutrophils # (Manual) 6.0 10^3/uL (1.5-6.6) 06/10/23 06:18 Lymphocytes # (Manual) 1.3 10^3/uL (1.5-3.5) L 06/10/23 06:18 Monocytes # (Manual) 1.5 10^3/uL (0.0-1.0) H 06/10/23 06:18 Eosinophils # (Manual) 0.6 10^3/uL (0-0.7) 06/10/23 06:18 Basophils # (Manual) 0.0 10^3/uL (0-0.1) 06/10/23 06:18 Differential Comment MANUAL DIFFERENTIAL 06/10/23 06:18 Manual Slide Review Indicated 06/07/23 06:52 WBC Morphology 1+ DOHLE BODIES (NORMAL) 2+ VACUOLATION (NORMAL) 06/08/23 06:21 WBC Morphology 1+ DOHLE BODIES (NORMAL) 2+ VACUOLATION (NORMAL) 06/08/23 06:21 Platelet Morphology PLATELET CLUMPING (NORMAL) 06/08/23 06:21 RBC Morph Micro Appear NORMAL APPEARANCE (NORMAL) 06/08/23 06:21 Sodium 138 mmol/L (135-145) 06/11/23 07:49 Potassium 3.9 mmol/L (3.5-4.5) 06/11/23 07:49 Chloride 103 mmol/L (101-111) 06/11/23 07:49 Carbon Dioxide 29 mmol/L (21-32) 06/11/23 07:49 Anion Gap 6.0 (6-13) 06/11/23 07:49 BUN 16 mg/dL (6-20) 06/11/23 07:49 Creatinine 0.7 mg/dL (0.6-1.3) 06/11/23 07:49 Estimated GFR (MDRD) 80 (>89) L 06/11/23 07:49 Glucose 118 mg/dL (74-104) H 06/11/23 07:49 Lactic Acid 2.1 mmol/L (0.5-2.2) 06/07/23 19:38 Calcium 8.8 mg/dL (8.5-10.3) 06/11/23 07:49 Total Bilirubin 0.8 mg/dL (0.2-1.0) 06/09/23 06:25 AST 53 IU/L (10-42) H 06/09/23 06:25 ALT 56 IU/L (10-60) 06/09/23 06:25 Alkaline Phosphatase 244 IU/L (42-121) H 06/09/23 06:25 Total Protein 5.9 g/dL (6.4-8.9) L 06/09/23 06:25 Albumin 3.0 g/dL (3.2-5.5) L 06/09/23 06:25 Globulin 2.9 g/dL (2.1-4.2) 06/09/23 06:25 Albumin/Globulin Ratio 1.0 (1.0-2.2) 06/09/23 06:25 Vitamin D 25-Hydroxy 8.3 ng/mL (30.0-100.0) L 06/10/23 06:18 Urine Color YELLOW 06/07/23 07:03 Urine Clarity HAZY (CLEAR) 06/07/23 07:03 Urine pH 7.0 PH (5.0-7.5) 06/07/23 07:03 Ur Specific [place] 1.015 (1.002-1.030) 06/07/23 07:03 Urine Protein 30 mg/dL (NEGATIVE) H 06/07/23 07:03 Urine Glucose (UA) NEGATIVE mg/dL (NEGATIVE) 06/07/23 07:03 Urine Ketones 15 mg/dL (NEGATIVE) H 06/07/23 07:03 Urine Occult Blood TRACE-INTA (NEGATIVE) 06/07/23 07:03 Urine Nitrite NEGATIVE (NEGATIVE) 06/07/23 07:03 Urine Bilirubin NEGATIVE (NEGATIVE) 06/07/23 07:03 Urine Urobilinogen 1 (NORMAL) E.U./dL (NORMAL) 06/07/23 07:03 Ur Leukocyte Esterase SMALL (NEGATIVE) H 06/07/23 07:03 Urine RBC 0-5 /HPF (0-5) 06/07/23 07:03 Urine WBC >25 /HPF (0-5) H 06/07/23 07:03 Ur Squamous Epith Cells NONE SEEN (<= Few) 06/07/23 07:03 Urine Bacteria Moderate /HPF (None Seen) H 06/07/23 07:03 Ur Microscopic Review INDICATED 06/07/23 07:03 Urine Culture Comments INDICATED 06/07/23 07:03
[2023-06-11] MEDS: HYDROcod/ACETAM 5/325 MG TABLET PO PRN (18:11)
[2023-06-11] MEDS: guaiFENesin 600 MG TABLET PO PRN (20:46)
[2023-06-11] MEDS: PRAVASTATIN 40 MG TABLET PO SCH (20:46)
[2023-06-12] MEDS: cephALEXin 250 MG CAPSULE PO SCH ×4 (00:29→17:02)
[2023-06-12] MEDS: MELOXICAM 7.5 MG TABLET PO SCH ×2 (08:04→16:55)
[2023-06-12] MEDS: lisinopriL 20 MG TABLET PO SCH (08:04)
[2023-06-12] MEDS: TAMSULOSIN 0.4 MG CAPSULE PO SCH (08:04)
[2023-06-12] MEDS: FAMOTIDINE 20 MG TABLET PO SCH ×2 (08:04→16:55)
--- NOTE | 2023-06-12 14:57 | PROVIDER PROGRESS NOTE ---
Assessment/Plan - Problem List (1) Urinary tract infection due to Proteus Assessment/Plan: When she was in the ER several days ago there was no indication of UTI by her urinalysis and she had a normal white count and no fever. At presentation now she has an abnormal urinalysis, elevated white count, and th e urine culture is identified as growing Proteus, and I reviewed sensitivities. Plan: Dr Wu, Urol, changed her iv Ceftriaxone to oral Keflex 500 QID (which it is sens to), starting 06/09, and he advised a 7-day total course of treatment, so thru 06/13/23 (2) Ureterolithiasis Assessment/Plan: S/P ureteral stent placed by Dr Wu Urologist Plan: Dr. Wu wants her to have a follow-up in his office in 1 to 2 weeks as an outpatient (3) Poor memory For 2 days post-op, the patient had obvious lethargy and the at bedside stated that this is not her normal mental status; she is usually sharp, quick to answer and has a better memory, he said. He noticed that this began when she got low doses of oxycodone after DCh from the ER several days ago when the stone was found. We presumed her UTI and lingering anesthetic, were adding to ongoing AMS. The patient was then transitioned to the Hospitalist service from the Urologist service, in Observation status. I did a head CT this admission which showed no acute findings, it was able to be compared to the head CT from that last ER visit several days ago. On 06/09 I had a long talk at bedside with the patient's daughter Sheryl who said that her mother has developed poor memory and is more confused for the past 2 months, not just past 1 week I have had the patient working with PT and OT and they also report she has poor memory, is disoriented but can cover it, and advised that she is not safe to discharge home, since the patient is the primary caregiver We were awaiting [place] to approve a SNF, for her to have more PT and OT rehab before returning home, and she was accepted at [facility]. However, it was learned that [place] is not her primary health insurance. Medicare is primary. And she was then turned down by [facility] yesterday PRIETO spoke to the re their options, and SW also updated the pt's daughter by phone. Plan: Today is Sun and we have no SW here today. We are determining if she will go for Respite Care, or to [facility] under 's 100% VA covered benefits, or back home with Home Health PT & OT and to get extra caregivers hired. No safe discharge until something is arranged. (4) Deconditioning Assessment/Plan: Patient has been bedbound now with limited activity because of the left hip pain after the fall. She is working with PT and OT. Plan: I will order OOB for all meals We hope she could get PT and OT at a SNF vs Home Health. SW to work on the discharge plan. (5) Left hip pain Assessment/Plan: The patient reported this after admission. She did not report it at presentation to the ER yesterday. X-rays of the left hip and pelvis were done yesterday evening and these showed no areas of fracture or dislocation. Today the gave more details about how she fell out of bed on the morning of presentation. He heard a thud and found her on the floor. It took the patient and her 1-1/2 hours to lift her, she was then wheeled to the toilet then brought back but could not be moved from chair back to bed, so the called an ambulance. The patient remembered that she has had left lower leg pain for months but cannot specify how long or what makes it worse or better. She continues to have the point tenderness of her left lateral hip but much improved today. I obtained CT of LS spine and left hip and upper leg, which all came back w/ no fractures, no dislocation, no spinal stenosis. But she has significant arthritis. PT evaluation while bearing weight on the L leg caused 10/10 pain, which is s lowly improving. Plan: Cont her Mobic 7.5 BID will give it with meals and cont Pepcid BID with meals Cont PT and OT rehab (6) Fall at home Assessment/Plan: The gave more details about how she fell out of bed on the morning of presentation. He heard a thud and found her on the floor. It took the patient and her 1-1/2 hours to lift her, she was then wheeled to the toilet then brought back but could not be moved from chair back to bed, so the called an ambulance. Plan: PT and OT rehab needed Orthostatic VS checks (7) Prerenal azotemia Assessment/Plan: Resolved Labs were all reviewed. Her BUN/creatinine is normal today (8) Hx of essential hypertension Assessment/Plan: Plan: I have slowly resumed her usual BP meds Cont to check orthostatic VS - Current Meds Current Meds: Current Medications Generic Name Dose Route Start Last Admin Trade Name Freq PRN Reason Stop Dose Admin Hydrocodone Bitart/Acetaminophen 1 tab 06/07/23 12:21 06/11/23 18:11 Hydrocod/Acetam 5/325 Mg Tablet PO 1 tab Q4HR PRN Administration Moderate Pain (Level 4-6) Cephalexin 500 mg 06/09/23 06:00 06/12/23 11:36 Cephalexin 250 Mg Capsule PO 500 mg Q6HR KIT Administration Famotidine 20 mg 06/09/23 17:00 06/12/23 08:04 Famotidine 20 Mg Tablet PO 20 mg BIDWM KIT Administration Guaifenesin 600 mg 06/11/23 20:02 06/11/23 20:46 Guaifenesin 600 Mg Tablet PO 600 mg BID PRN Administration Cough Lisinopril 20 mg 06/08/23 11:00 06/12/23 08:04 Lisinopril 20 Mg Tablet PO 20 mg DAILY KIT Administration Meloxicam 7.5 mg 06/09/23 17:00 06/12/23 08:04 Meloxicam 7.5 Mg Tablet PO 7.5 mg BIDWM KIT Administration Pravastatin Sodium 80 mg 06/08/23 10:43 06/11/23 20:46 Pravastatin 40 Mg Tablet PO 80 mg QPM KIT Administration Tamsulosin HCl 0.4 mg 06/08/23 09:00 06/12/23 08:04 Tamsulosin 0.4 Mg Capsule PO 0.4 mg DAILY KIT Administration - Lab Result Fish Bone Diagrams: 06/11/23 07:49 06/11/23 07:49 - Additional Planning My Orders: My Active Orders 06/11/23 17:20 Vital Signs - Orthostatic [RC] QSHIFT 06/12/23 10:14 Miscellaenous Nursing Order [RC] QSHIFT Subjective - Subjective Patient Reports: Resting Comfortably Objective Vital Signs: Vital Signs - 24 hr 06/11/23 06/11/23 06/12/23 16:21 20:44 00:26 Temperature 37.2 C 36.6 C 36.8 C Heart Rate [ 78 88 75 Brachial] Respiratory 20 20 18 Rate Blood Pressure 150/71 H 150/79 H 150/66 H [Right Brachial artery] O2 Saturation 94 94 94 06/12/23 06/12/23 06/12/23 05:00 09:00 12:03 Temperature 36.9 C 37.0 C 36.9 C Heart Rate [ 73 77 77 Brachial] Respiratory 18 20 20 Rate Blood Pressure 148/70 H 157/75 H 147/71 H [Right Brachial artery] O2 Saturation 94 96 96 Oxygen O2 Source Room air I&O (Last 24 Hrs): Intake and Output Totals x24h 06/10/23 06/11/23 06/12/23 23:59 23:59 23:59 Intake Total 600 1250 560 Output Total 1600 600 300 Balance -1000 650 260 General: Alert, No acute distress HEENT: EOMI Neck: Supple, No JVD Neuro: Alert, Other (Poor memory) Cardiovascular: Regular rate Respiratory: No respiratory distress Abdomen: Soft Extremities: No clubbing, No edema - Results Results: Laboratory Results WBC 8.8 x10^3/uL (4.8-10.8) 06/11/23 07:49 RBC 4.24 10^6/uL (4.20-5.40) 06/11/23 07:49 Hgb 12.4 g/dL (12.0-16.0) 06/11/23 07:49 Hct 38.4 % (37.0-47.0) 06/11/23 07:49 MCV 90.6 fL (81.0-99.0) 06/11/23 07:49 MCH 29.2 pg (27.0-31.0) 06/11/23 07:49 MCHC 32.3 g/dL (32.0-36.0) 06/11/23 07:49 RDW 13.7 % (12.0-15.0) 06/11/23 07:49 Plt Count 397 10^3/uL (130-450) 06/11/23 07:49 MPV 8.9 fL (7.9-10.8) 06/11/23 07:49 Neut # (Auto) 6.1 10^3/uL (1.5-6.6) 06/11/23 07:49 Lymph # (Auto) 1.1 10^3/uL (1.5-3.5) L 06/11/23 07:49 [place] # (Auto) 0.9 10^3/uL (0.0-1.0) 06/11/23 07:49 Eos # (Auto) 0.0 10^3/uL (0.0-0.7) 06/11/23 07:49 Baso # (Auto) 0.1 10^3/uL (0.0-0.1) 06/11/23 07:49 Absolute Nucleated RBC 0.00 x10^3/uL 06/11/23 07:49 Total Counted 100 06/10/23 06:18 Band Neuts % (Manual) 2 % (0-10) 06/10/23 06:18 Reactive Lymphs % (Man) 8 % 06/10/23 06:18 Abnorm Lymph % (Manual) 0 % 06/10/23 06:18 Myelocytes % 2 % (-0) H 06/09/23 06:25 Nucleated RBC % 0.0 /100WBC 06/11/23 07:49 Neutrophils # (Manual) 6.0 10^3/uL (1.5-6.6) 06/10/23 06:18 Lymphocytes # (Manual) 1.3 10^3/uL (1.5-3.5) L 06/10/23 06:18 Monocytes # (Manual) 1.5 10^3/uL (0.0-1.0) H 06/10/23 06:18 Eosinophils # (Manual) 0.6 10^3/uL (0-0.7) 06/10/23 06:18 Basophils # (Manual) 0.0 10^3/uL (0-0.1) 06/10/23 06:18 Differential Comment MANUAL DIFFERENTIAL 06/10/23 06:18 Manual Slide Review Indicated 06/07/23 06:52 WBC Morphology 1+ DOHLE BODIES (NORMAL) 2+ VACUOLATION (NORMAL) 06/08/23 06:21 WBC Morphology 1+ DOHLE BODIES (NORMAL) 2+ VACUOLATION (NORMAL) 06/08/23 06:21 Platelet Morphology PLATELET CLUMPING (NORMAL) 06/08/23 06:21 RBC Morph Micro Appear NORMAL APPEARANCE (NORMAL) 06/08/23 06:21 Sodium 138 mmol/L (135-145) 06/11/23 07:49 Potassium 3.9 mmol/L (3.5-4.5) 06/11/23 07:49 Chloride 103 mmol/L (101-111) 06/11/23 07:49 Carbon Dioxide 29 mmol/L (21-32) 06/11/23 07:49 Anion Gap 6.0 (6-13) 06/11/23 07:49 BUN 16 mg/dL (6-20) 06/11/23 07:49 Creatinine 0.7 mg/dL (0.6-1.3) 06/11/23 07:49 Estimated GFR (MDRD) 80 (>89) L 06/11/23 07:49 Glucose 118 mg/dL (74-104) H 06/11/23 07:49 Lactic Acid 2.1 mmol/L (0.5-2.2) 06/07/23 19:38 Calcium 8.8 mg/dL (8.5-10.3) 06/11/23 07:49 Total Bilirubin 0.8 mg/dL (0.2-1.0) 06/09/23 06:25 AST 53 IU/L (10-42) H 06/09/23 06:25 ALT 56 IU/L (10-60) 06/09/23 06:25 Alkaline Phosphatase 244 IU/L (42-121) H 06/09/23 06:25 Total Protein 5.9 g/dL (6.4-8.9) L 06/09/23 06:25 Albumin 3.0 g/dL (3.2-5.5) L 06/09/23 06:25 Globulin 2.9 g/dL (2.1-4.2) 06/09/23 06:25 Albumin/Globulin Ratio 1.0 (1.0-2.2) 06/09/23 06:25 Vitamin D 25-Hydroxy 8.3 ng/mL (30.0-100.0) L 06/10/23 06:18 Urine Color YELLOW 06/07/23 07:03 Urine Clarity HAZY (CLEAR) 06/07/23 07:03 Urine pH 7.0 PH (5.0-7.5) 06/07/23 07:03 Ur Specific [place] 1.015 (1.002-1.030) 06/07/23 07:03 Urine Protein 30 mg/dL (NEGATIVE) H 06/07/23 07:03 Urine Glucose (UA) NEGATIVE mg/dL (NEGATIVE) 06/07/23 07:03 Urine Ketones 15 mg/dL (NEGATIVE) H 06/07/23 07:03 Urine Occult Blood TRACE-INTA (NEGATIVE) 06/07/23 07:03 Urine Nitrite NEGATIVE (NEGATIVE) 06/07/23 07:03 Urine Bilirubin NEGATIVE (NEGATIVE) 06/07/23 07:03 Urine Urobilinogen 1 (NORMAL) E.U./dL (NORMAL) 06/07/23 07:03 Ur Leukocyte Esterase SMALL (NEGATIVE) H 06/07/23 07:03 Urine RBC 0-5 /HPF (0-5) 06/07/23 07:03 Urine WBC >25 /HPF (0-5) H 06/07/23 07:03 Ur Squamous Epith Cells NONE SEEN (<= Few) 06/07/23 07:03 Urine Bacteria Moderate /HPF (None Seen) H 06/07/23 07:03 Ur Microscopic Review INDICATED 06/07/23 07:03 Urine Culture Comments INDICATED 06/07/23 07:03
[2023-06-12] MEDS: PRAVASTATIN 40 MG TABLET PO SCH (20:45)
[2023-06-13] MEDS: cephALEXin 250 MG CAPSULE PO SCH ×4 (00:12→18:02)
[2023-06-13] MEDS: MELOXICAM 7.5 MG TABLET PO SCH ×2 (08:48→17:13)
[2023-06-13] MEDS: TAMSULOSIN 0.4 MG CAPSULE PO SCH (08:48)
[2023-06-13] MEDS: CHOLECALCIFEROL 5,000 UNIT CAPSULE PO SCH (08:49)
[2023-06-13] MEDS: FAMOTIDINE 20 MG TABLET PO SCH ×2 (08:49→17:13)
[2023-06-13] MEDS: lisinopriL 20 MG TABLET PO SCH (08:49)
--- NOTE | 2023-06-13 17:13 | PROVIDER PROGRESS NOTE ---
Assessment/Plan - Problem List (1) Urinary tract infection due to Proteus Assessment/Plan: When she was in the ER at the prior visit, there was no indication of UTI by her urinalysis and she had a normal white count and no fever. At presentation now she had an abnormal urinalysis, elevated white count, and the urine culture is identified as growing Proteus, and I reviewed sensitivities. Plan: Dr Wu, Urol, changed her iv Ceftriaxone to oral Keflex 500 QID (which it is sens to), starting 06/09, and he advised a 7-day total course of treatment, so thru today 06/13/23 (2) Mourning Assessment/Plan: This early morning babysitter at approx 0330, the , who was staying in the pt's room, and the patient, were having an argument. Then the patient screamed. Her RN came in and found the with agonal breathing and he was posturing. He was taken to the ER. We learned that he several hours later. The hospital staff informed the step-daughters but did not tell the pt. The 2 daughters arrived this afternoon and they broke the news to the patient. Plan: Supportive care Social work was told about the details in order to provide help and support to pt and family. (3) Ureterolithiasis Assessment/Plan: S/P ureteral stent placed by Dr Wu Urologist Plan: Dr. Wu wants her to have a follow-up in his office in 1 to 2 weeks as an outpatient (4) Poor memory The patient had obvious lethargy and poor memory, which we at first presumed was from her UTI. The patient was therefore transitioned to the Hospitalist service from the Urologist service, in Observation status. A head CT this admission showed no acute findings, it was able to be compared to the head CT from that last ER visit several days ago. On 06/09 I had a long talk at bedside with the patient's daughter Sheryl who sa id that her mother has developed poor memory and is more confused for the past 2 months, not just recently. I have had the patient working with PT and OT and they also report she has poor memory, is disoriented but can cover it, and advised that she is not safe to discharge home, since the patient is the primary caregiver. She had no safe discharge until something was arranged. Plan: The 2 daughters have arrived to be at her side today, helping her make decisions and they all worked with Jacki, our SW. The plan will be to go to [facility], for rehab at SNF then LTC. Discharge will probably be tomorrow (5) Left hip pain Assessment/Plan: The patient did not report hip pain at presentation to the ER, but first reported to me after admission, that she fell OOB at home. The patient also remembered that she has had left lower leg pain for months but cannot specify how long or what makes it worse or better. She continues to have mild point tenderness of her left lateral hip but much improved every day. I obtained X-rays of the left hip and pelvis and these showed no areas of fracture or dislocation. CT of LS spine and left hip and upper leg, all came back w/ no fractures, no dislocation, no spinal stenosis. But she has significant arthritis. PT evaluation while bearing weight on the L leg initially caused 10/10 pain, which is slowly improving. Plan: Cont her Mobic 7.5 BID for a total of 1 week, and give it with meals and cont Pepcid BID with meals Cont PT and OT rehab (6) Fall at home Assessment/Plan: The heard a thud and found her on the floor. It took the patient and her 1-1/2 hours to lift her, she was then wheeled to the toilet then bro ught back but could not be moved from the seated walker back to bed, so the called an ambulance. Orthostatic VS checks have been WNL Plan: PT and OT rehab needed (7) Deconditioning Assessment/Plan: Patient has been mostly bedbound with limited activity because of the left hip pain after the fall at home. She is working with PT and OT. Plan: I will order OOB for all meals Plan is to get PT and OT at a SNF (8) Hypertension Assessment/Plan: Plan: I have slowly resumed her usual BP meds Cont to check orthostatic VS (9) Prerenal azotemia Assessment/Plan: Resolved. Labs were all reviewed. - Current Meds Current Meds: Current Medications Generic Name Dose Route Start Last Admin Trade Name Freq PRN Reason Stop Dose Admin Hydrocodone Bitart/Acetaminophen 1 tab 06/07/23 12:21 06/11/23 18:11 Hydrocod/Acetam 5/325 Mg Tablet PO 1 tab Q4HR PRN Administration Moderate Pain (Level 4-6) Cephalexin 500 mg 06/09/23 06:00 06/13/23 11:47 Cephalexin 250 Mg Capsule PO 500 mg Q6HR KIT Administration Cholecalciferol 5,000 unit 06/13/23 09:00 06/13/23 08:49 Cholecalciferol 5,000 Unit Capsule PO 5,000 unit DAILY KIT Administration Famotidine 20 mg 06/09/23 17:00 06/13/23 08:49 Famotidine 20 Mg Tablet PO 20 mg BIDWM KIT Administration Guaifenesin 600 mg 06/11/23 20:02 06/11/23 20:46 Guaifenesin 600 Mg Tablet PO 600 mg BID PRN Administration Cough Lisinopril 20 mg 06/08/23 11:00 06/13/23 08:49 Lisinopril 20 Mg Tablet PO 20 mg DAILY KIT Administration Meloxicam 7.5 mg 06/09/23 17:00 06/13/23 08:48 Meloxicam 7.5 Mg Tablet PO 7.5 mg BIDWM KIT Administration Pravastatin Sodium 80 mg 06/08/23 10:43 06/12/23 20:45 Pravastatin 40 Mg Tablet PO 80 mg QPM KIT Administration Tamsulosin HCl 0.4 mg 06/08/23 09:00 06/13/23 08:48 Tamsulosin 0.4 Mg Capsule PO 0.4 mg DAILY KIT Administration - Lab Result Fish Bone Diagrams: 06/11/23 07:49 06/11/23 07:49 - Additional Planning My Orders: My Active Orders 06/13/23 09:00 Cholecalciferol [Vitamin D3] 5,000 unit PO DAILY Subjective - Subjective Patient Reports: Other (She is withdrawn, daughters at bedside.) Nursing Reports: Other (RN reported the events of last night regarding her ) Objective Vital Signs: Vital Signs - 24 hr 06/12/23 06/12/23 06/13/23 20:56 21:47 00:00 Temperature 36.9 C 37.0 C Heart Rate [ 81 83 Brachial] Respiratory 20 18 Rate Blood Pressure 169/84 H [Right Brachial artery] Blood Pressure 170/91 H 156/73 H [Right Radial artery] O2 Saturation 94 95 06/13/23 06/13/23 06/13/23 05:21 08:56 12:08 Temperature 36.7 C 36.8 C Heart Rate [ 87 92 81 Brachial] Respiratory 18 16 18 Rate Blood Pressure 116/87 H 142/88 H [Right Brachial artery] Blood Pressure 129/112 H [Right Radial artery] O2 Saturation 95 93 96 Oxygen O2 Source Room air I&O (Last 24 Hrs): Intake and Output Totals x24h 06/11/23 06/12/23 06/13/23 23:59 23:59 23:59 Intake Total 1250 1300 480 Output Total 600 400 850 Balance 650 900 -370 General: Other (Withdrawn and appears tired) HEENT: Mucous membr. moist/pink Neck: Supple Neuro: Alert, Non Focal, Other (Poor memory) Cardiovascular: Regular rate Respiratory: No respiratory distress Abdomen: Soft Extremities: No clubbing, No edema - Results Results: Laboratory Results WBC 8.8 x10^3/uL (4.8-10.8) 06/11/23 07:49 RBC 4.24 10^6/uL (4.20-5.40) 06/11/23 07:49 Hgb 12.4 g/dL (12.0-16.0) 06/11/23 07:49 Hct 38.4 % (37.0-47.0) 06/11/23 07:49 MCV 90.6 fL (81.0-99.0) 06/11/23 07:49 MCH 29.2 pg (27.0-31.0) 06/11/23 07:49 MCHC 32.3 g/dL (32.0-36.0) 06/11/23 07:49 RDW 13.7 % (12.0-15.0) 06/11/23 07:49 Plt Count 397 10^3/uL (130-450) 06/11/23 07:49 MPV 8.9 fL (7.9-10.8) 06/11/23 07:49 Neut # (Auto) 6.1 10^3/uL (1.5-6.6) 06/11/23 07:49 Lymph # (Auto) 1.1 10^3/uL (1.5-3.5) L 06/11/23 07:49 [place] # (Auto) 0.9 10^3/uL (0.0-1.0) 06/11/23 07:49 Eos # (Auto) 0.0 10^3/uL (0.0-0.7) 06/11/23 07:49 Baso # (Auto) 0.1 10^3/uL (0.0-0.1) 06/11/23 07:49 Absolute Nucleated RBC 0.00 x10^3/uL 06/11/23 07:49 Total Counted 100 06/10/23 06:18 Band Neuts % (Manual) 2 % (0-10) 06/10/23 06:18 Reactive Lymphs % (Man) 8 % 06/10/23 06:18 Abnorm Lymph % (Manual) 0 % 06/10/23 06:18 Myelocytes % 2 % (-0) H 06/09/23 06:25 Nucleated RBC % 0.0 /100WBC 06/11/23 07:49 Neutrophils # (Manual) 6.0 10^3/uL (1.5-6.6) 06/10/23 06:18 Lymphocytes # (Manual) 1.3 10^3/uL (1.5-3.5) L 06/10/23 06:18 Monocytes # (Manual) 1.5 10^3/uL (0.0-1.0) H 06/10/23 06:18 Eosinophils # (Manual) 0.6 10^3/uL (0-0.7) 06/10/23 06:18 Basophils # (Manual) 0.0 10^3/uL (0-0.1) 06/10/23 06:18 Differential Comment MANUAL DIFFERENTIAL 06/10/23 06:18 Manual Slide Review Indicated 06/07/23 06:52 WBC Morphology 1+ DOHLE BODIES (NORMAL) 2+ VACUOLATION (NORMAL) 06/08/23 06:21 WBC Morphology 1+ DOHLE BODIES (NORMAL) 2+ VACUOLATION (NORMAL) 06/08/23 06:21 Platelet Morphology PLATELET CLUMPING (NORMAL) 06/08/23 06:21 RBC Morph Micro Appear NORMAL APPEARANCE (NORMAL) 06/08/23 06:21 Sodium 138 mmol/L (135-145) 06/11/23 07:49 Potassium 3.9 mmol/L (3.5-4.5) 06/11/23 07:49 Chloride 103 mmol/L (101-111) 06/11/23 07:49 Carbon Dioxide 29 mmol/L (21-32) 06/11/23 07:49 Anion Gap 6.0 (6-13) 06/11/23 07:49 BUN 16 mg/dL (6-20) 06/11/23 07:49 Creatinine 0.7 mg/dL (0.6-1.3) 06/11/23 07:49 Estimated GFR (MDRD) 80 (>89) L 06/11/23 07:49 Glucose 118 mg/dL (74-104) H 06/11/23 07:49 Lactic Acid 2.1 mmol/L (0.5-2.2) 06/07/23 19:38 Calcium 8.8 mg/dL (8.5-10.3) 06/11/23 07:49 Total Bilirubin 0.8 mg/dL (0.2-1.0) 06/09/23 06:25 AST 53 IU/L (10-42) H 06/09/23 06:25 ALT 56 IU/L (10-60) 06/09/23 06:25 Alkaline Phosphatase 244 IU/L (42-121) H 06/09/23 06:25 Total Protein 5.9 g/dL (6.4-8.9) L 06/09/23 06:25 Albumin 3.0 g/dL (3.2-5.5) L 06/09/23 06:25 Globulin 2.9 g/dL (2.1-4.2) 06/09/23 06:25 Albumin/Globulin Ratio 1.0 (1.0-2.2) 06/09/23 06:25 Vitamin D 25-Hydroxy 8.3 ng/mL (30.0-100.0) L 06/10/23 06:18 Urine Color YELLOW 06/07/23 07:03 Urine Clarity HAZY (CLEAR) 06/07/23 07:03 Urine pH 7.0 PH (5.0-7.5) 06/07/23 07:03 Ur Specific [place] 1.015 (1.002-1.030) 06/07/23 07:03 Urine Protein 30 mg/dL (NEGATIVE) H 06/07/23 07:03 Urine Glucose (UA) NEGATIVE mg/dL (NEGATIVE) 06/07/23 07:03 Urine Ketones 15 mg/dL (NEGATIVE) H 06/07/23 07:03 Urine Occult Blood TRACE-INTA (NEGATIVE) 06/07/23 07:03 Urine Nitrite NEGATIVE (NEGATIVE) 06/07/23 07:03 Urine Bilirubin NEGATIVE (NEGATIVE) 06/07/23 07:03 Urine Urobilinogen 1 (NORMAL) E.U./dL (NORMAL) 06/07/23 07:03 Ur Leukocyte Esterase SMALL (NEGATIVE) H 06/07/23 07:03 Urine RBC 0-5 /HPF (0-5) 06/07/23 07:03 Urine WBC >25 /HPF (0-5) H 06/07/23 07:03 Ur Squamous Epith Cells NONE SEEN (<= Few) 06/07/23 07:03 Urine Bacteria Moderate /HPF (None Seen) H 06/07/23 07:03 Ur Microscopic Review INDICATED 06/07/23 07:03 Urine Culture Comments INDICATED 06/07/23 07:03
[2023-06-13] MEDS: PRAVASTATIN 40 MG TABLET PO SCH (21:01)
[2023-06-13 21:13] VITALS: O2SAT 96
[2023-06-14] MEDS: cephALEXin 250 MG CAPSULE PO SCH ×3 (00:18→12:02)
[2023-06-14 00:40] VITALS: BP 157/89
[2023-06-14] MEDS: FAMOTIDINE 20 MG TABLET PO SCH (08:09)
[2023-06-14] MEDS: TAMSULOSIN 0.4 MG CAPSULE PO SCH (08:09)
[2023-06-14] MEDS: CHOLECALCIFEROL 5,000 UNIT CAPSULE PO SCH (08:09)
[2023-06-14] MEDS: MELOXICAM 7.5 MG TABLET PO SCH (08:09)
[2023-06-14] MEDS: lisinopriL 20 MG TABLET PO SCH (08:09)
[2023-06-14] MEDS: guaiFENesin 600 MG TABLET PO PRN (08:09)
--- NOTE | 2023-06-14 10:29 | Discharge Plan ---
Discharge Plan for SNF / NATAC[facility] - Discharge Plan And Transition Orders Problem Reviewed?: Yes Disposition: 03 SNF DC/Xfer Condition: Fair Allergies and Adverse Reactions: Allergies Allergy/AdvReac Type Severity Reaction Status Date / Time Penicillins Allergy Unknown Verified 06/07/23 12:13 Health Concerns: Patient was hospitalized due to weakness, had a fall at home, had altered mental status from a UTI and an obstructing renal stone was found and she received a stent placed by Urology. She has been on antibiotics for the UTI. She had evaluation of the hip pain onto which she fell, and there were no fractures. She has arthritis seen. She was being readied for discharge, when she developed altered mental status. Discharge was canceled. Altered mental status was initially interpreted as "acute" but in speaking to the family the patient has been deteriorating with cognitive function and memory loss over the last several months. Her altered mental status improved only minimally so she had a head CT and this showed no stroke. She is extremely deconditioned due to longstanding weakness, arthritic pain of her left arm and left leg, and we learned she has had this worsening memory for the past 2 months. She needs PT and OT rehab at a SNF and to finish her course of antibiotics. There is one unusual event during her stay. Her would stay at night to help with her ing. In the disbursing officer hours of June 13, she was crying for help. In going into her room her, nursing found that her had in the reclining chair. Plan of Treatment: As above. And she needs a Urology F/U as an outpatient with Dr Wu in approx. 2 weeks. Care Goals: Improvement in symptoms and stabilization are the goals. Family is deciding w hether the patient will return to home with caregivers or to be placed permanently in a nursing facility. Assessment: The patient and family understand and are agreeable with the plan. - SNF / ASSISTED Transition Orders Admit to (Facility): [facility] Under the care of (Name): Unknown PCP. Team health SNFist Discharge Diagnosis: 1. Complicated UTI due to Proteus 2. Ureteral lithiasis 3. Metabolic encephalopathy due to infection and dementia 4. Moderate to severe cognitive deficits, unspecified 5. Moderate deconditioning 6. History of falls at home 7. Prerenal azotemia, resolved 8. Hypertension 9. Left hip pain due to fall 10. Mourning Medicare Certification Statement: I certify that [facility] nursing home care is medically necessary on a continuing basis for any of the conditions for which she/he is receiving care during hospitalization. Notify PCP of admission and forward orders to primary provider for signature. Weight on admission and: Weekly Other Notification Orders: Call PCP immediately if patient develops dyspnea, chest pain/tightness or edema. House Bowel Program: Yes Additional Bowel Program Orders: If no BM after 2 days, nurse may give M.O.M. 30ml PO PRN and/or ducolax Supp 1 UT and/or RACHEL 250mg P.O., and/or senna 1-2 tabs PO. On day 3 nurse may give repeat above order until residents constipation is resolved. Annual Influenza Vaccine (between May 06 and December 03): Yes Two-step PPD per [facility] [id number] or approved exception documents: Yes Lab Tests or X-ray Orders: CBC and BMP on June 20 Medication Orders: PLEASE REFER TO THE DISCHARGE MEDICATION LIST. Insulin Orders?: No - Medications New Prescriptions: Oxycodone HCl/Acetaminophen [Percocet 5-325 mg Tablet] 1 each PO Q4H PRN #20 tablet PRN Reason: pain - Diet Type: Geriatric Texture: Regular Liquids: Thin May have monthly special meal: Yes - Therapies | Activity Therapy: Evaluation | Treat if indicated: PT, OT Rehabilitation Potential: Maximize functional status, Return to independent living Activity: Activity as Tolerated Weight Bearing: Full Weight Assistance Devices: Wheelchair, Walker Follow Up: Titus Wu MD/urology
--- NOTE | 2023-06-14 11:04 | DISCHARGE SUMMARY ---
"Discharge Summary Admit Date: 06/07/23 Discharge Date: 06/14/23 Discharging Provider: Eugenia Marcelo MD Code Status: Do Not Attempt Resuscitation Condition at Discharge: Fair Discharge Disposition: [facility] DC/Xfer - DIAGNOSES Discharge Diagnoses with Status of Each Condition: 1. Complicated UTI due to Proteus 2. Ureteral lithiasis 3. Metabolic encephalopathy due to infection and dementia 4. Moderate to severe cognitive deficits, unspecified 5. Moderate deconditioning 6. History of falls at home 7. Prerenal azotemia, resolved 8. Hypertension 9. Left hip pain due to fall 10. Mourning - HPI History of Present Illness: 82-year-old woman with no significant urological history who presented to the ER 3 days ago with left flank pain, was found to have a 5 mm distal left ureteral stone. She was sent home with conservative management. She returns today with worsening pain, leukocytosis, urinalysis concerning for infection. She is hemodynamically stable she is afebrile. Her last meal was last night - PMH/PSH/Social Hx Does the pt have a hx of MRSA?: No Neurological History: None Cardiovascular: None, Murmur Respiratory: None Endocrine/Autoimmune: None Urinary: Other Smoking Status: Never smoker - CONSULTS | PROCEDURES Consultations: Admitting provider was urologyTitus. Coil Assembler was internal m Procedures: 1. Cystoscopy with left ureteral stent 2. Hip and pelvis x-ray have no acute bony abnormality. 3. Head CT without acute intracranial abnormality 4. Lower extremity CT for hip pain shows no acute osseous abnormality, mild left hip osteoarthritis 5. Lumbar spine CT for hip pain shows multilevel degenerative changes of the lumbar spine. No acute fractures. Transitional anatomy with sacralization of L5 vertebral body. Left ureteral stent in place. Atrophied left kidney. Fullness of left collecting system versus mild hydronephrosis. 6. Urine culture with Proteus mirabilis - HOSPITAL COURSE Hospital Course: (1) Urinary tract infection due to Proteus Assessment/Plan: When she was in the ER at the prior visit, there was no indication of UTI by her urinalysis and she had a normal white count and no fever. After admission, she had an abnormal urinalysis, elevated white count, and the urine culture is identified as growing Proteus, and I reviewed sensitivities. Dr Wu, Urol, changed her iv Ceftriaxone to oral Keflex 500 QID (which it is sens to), starting 06/09, and he advised a 7-day total course of treatment, so thru 06/13/23 (2) Mourning Assessment/Plan: 06/13/23 Early am at approximately 0330, the , who was staying in the pt's room, and the patient, were having an argument. Then the patient screamed. Her RN came in and found the with agonal breathing and he was posturing. He was taken to the ER. We learned that he several hours later. The hospital staff informed the step-daughters but did not tell the pt. The 2 daughters arrived in the afternoon and they broke the news to the patient. Social work was told about the details in order to provide help and support to pt and family. (3) Ureterolithiasis Assessment/Plan: S/P ureteral stent placed by Dr Wu Urologist Dr. Wu wants her to have a follow-up in his office in 1 to 2 weeks as an outpatient (4) Poor memory The patient had obvious lethargy and poor memory, which we at first presumed was from her UTI. The patient was therefore transitioned to the Hospitalist service from the Urologist service, from Observation status and changed to inpatient status. A head CT was without acute findings and it was compared to the head CT from that last ER visit several days ago. On 06/09 hospitalist spoke to patient's daughter Sheryl who was at the bedside, and daughter said that her mother has developed poor memory and is more confused for the past 2 months, not just recently. PT and OT and also reported she has poor memory, is disoriented but can cover it, and advised that she is not safe to discharge home, since the patient has n o primary caregiver. She had no safe discharge until something was arranged. The 2 daughters arrived at the of their stepfather to be at her side , helping her make decisions and they all worked with dyllan Echeverria. The plan is discharge to [facility] ED, for rehab at SNF then LTC. (5) Left hip pain Assessment/Plan: The patient did not report hip pain at presentation to the ER, but first reported to hospitalist after admission, that she fell OOB at home. The patient also remembered that she has had left lower leg pain for months but cannot specify how long or what makes it worse or better. She continues to have mild point tenderness of her left lateral hip but improves every day. X-rays of the left hip and pelvis were done and were without areas of fracture or dislocation. CT of LS spine and left hip and upper leg, all came back w/ no fractures, no dislocation, no spinal stenosis. But she has significant arthritis. PT evaluation while bearing weight on the L leg initially caused 10/10 pain, which is slowly improving. Treatment was: Cont her Mobic 7.5 BID for a total of 1 week and at discharge, she is Day #6, and give it with meals and Pepcid BID with meals Cont PT and OT rehab (6) Fall at home Assessment/Plan: Prior to admission, at home, the heard a thud and found her on the floor. It took the patient and her 1-1/2 hours to lift her, she was then wheeled to the toilet then brought back but could not be moved from the seated walker back to bed, so the called an ambulance. Orthostatic VS checks have been WNL. (7) Deconditioning Assessment/Plan: Patient has been mostly bedbound with limited activity because of the left hip pain after the fall at home. She is working with PT and OT. (8) Hypertension Assessment/Plan: Her usual blood pressure medicines were slowly resumed. At discharge supine blood pressure 163/98. Sitting blood pressure 159/83. Standing blood pressure 156/74. There is no significant pulse change with this. (9) Prerenal azotemia Assessment/Plan: Resolved. Labs were all reviewed. Admission BUN was 29. At discharge she is 16. Admission creatinine was 1. 3, and at discharge she was 0.7. Discharge exam had a temperature of 37.2. Heart rate 78. Orthostatics noted above. Respirations 16. 96% on room air. She is able to walk with a gait belt and a walker and ambulate to the bathroom as long as there is a standby assist. She is oriented to person place and situation but occasionally forgetful. Because of the of her she was understandably sad and crying on the day of discharge. She has urinary incontinence and wears a brief and a pad. Last bowel movement was June 14. Lungs were clear to auscultation and percussion without any increased respiratory effort. Regular rate and rhythm. Extremities without edema. Greater than 30 minutes was spent coordinating discharge. Plan is discharged to [facility] to see if she can cooperate with PT. But after that will be long-term care. This document was made in part using voice recognition software. While efforts are made to proofread this document, sound alike and grammatical errors may occur. - ALLERGIES Allergies/Adverse Reactions: Allergies Allergy/AdvReac Type Severity Reaction Status Date / Time Penicillins Allergy Unknown Verified 06/07/23 12:13 - MEDICATIONS Home Medications: Ambulatory Orders Medication Instructions Recorded Confirmed Atorvastatin Calcium 40 mg PO DAILY 06/04/23 06/07/23 Lisinopril [Zestril] 20 mg PO DAILY 06/04/23 06/07/23 Meloxicam [Mobic] 7.5 mg PO BID 10 Days #15 tablet 06/04/23 06/07/23 Ondansetron Odt [Zofran Odt] 4 mg TL Q6H PRN #15 tablet 06/04/23 06/07/23 Tamsulosin [Flomax] 0.4 mg PO DAILY #5 cap 06/04/23 06/07/23 Cholecalciferol [Vitamin D3] 5,000 unit PO DAILY cap 06/14/23 Oxycodone HCl/Acetaminophen 1 each PO Q4H PRN #20 tablet 06/14/23 [Percocet 5-325 mg Tablet] - LABS Result Diagrams: 06/11/23 07:49 06/11/23 07:49"
== END 2023-06-14 14:05 ==
LOC: EDUNIT# → ED 06:13 → SDS 10:36 → MS2 16:35
PROVIDERS: ADMIT Urology; ATTEND Specialist
PROC: 0T778DZ Dilation of Left Ureter with Intraluminal Device, Via Natural or Artificial Opening Endoscopic (ICD-10-PCS; principal; 2023-06-07 11:00)
DX: N39.0 Urinary tract infection, site not specified (principal); B96.4 Proteus (mirabilis) (morganii) as the cause of diseases classified elsewhere; N13.2 Hydronephrosis with renal and ureteral calculous obstruction; G93.41 Metabolic encephalopathy; F03.90 Unspecified dementia, unspecified severity, without behavioral disturbance, psychotic disturbance, mood disturbance, and anxiety; F09 Unspecified mental disorder due to known physiological condition; R53.1 Weakness; Z91.81 History of falling; R79.89 Other specified abnormal findings of blood chemistry; I10 Essential (primary) hypertension; R41.3 Other amnesia; W06.XXXA Fall from bed, initial encounter; Y92.009 Unspecified place in unspecified non-institutional (private) residence as the place of occurrence of the external cause; F32.89 Other specified depressive episodes; N81.6 Rectocele; R32 Unspecified urinary incontinence; M16.12 Unilateral primary osteoarthritis, left hip; M47.816 Spondylosis without myelopathy or radiculopathy, lumbar region; N26.1 Atrophy of kidney (terminal); Z87.891 Personal history of nicotine dependence
CPT/HCPCS: 36415; 51701; 52332; 70450; 72131; 73502; 73700; 80048; 80053; 81001; 82306; 83605; 85025; 87077; 87086; 87181; 96365; 96375; 96376; 97116; 97162; 97166; 97530; 97535; 99284; 99285; A9270; C1758; C2617; G0378; J1170; J7120; 81003